=== PATIENT | female | born 1985 | race Hispanic/Latino ===

== ENCOUNTER 2017-09-10 01:37 | Emergency (ER) | payer BC ==
[2017-09-10] MEDS ORDERED: MORPHINE 4 MG/ML SYR ONE ×3 (02:03→07:39)
[2017-09-10] MEDS ORDERED: ONDANSETRON 4 MG/2 ML VIAL ONE ×3 (02:04→04:03)
[2017-09-10] MEDS ORDERED: NA CHLORIDE 0.9% 1,000 ML ONE ×2 (02:04→07:13)
[2017-09-10] MEDS ORDERED: FAMOTIDINE 20 MG/2 ML VIAL IV ONE (02:56)
[2017-09-10] MEDS ORDERED: CIPROFLOXACIN 400mg IV 400 MG/200 ML BAG IV ONE (03:00)
[2017-09-10 03:17] LABS: Absolute Monocytes 0.4 K/uL (0.1-1.3); Absolute Neutrophil 5.1 K/uL (1.8-8.0); Basophils % 0.9 % (0-1.3); Eosinophils % 1.1 % (0-4.4); Hematocrit 41.3 % (36.0-45.0); Lymphocytes % 26.2 % (15.3-44.8); MCH 30.3 pg (27.0-35.0); MCV 91.3 fL (80-100); MPV 8.1 fL (7.6-11.3); Monocytes % 5.4 % (3.3-12.3); RBC Red Blood Cell Count 4.53 M/uL (3.86-4.86)
[2017-09-10 03:18] LABS: Urine Bacteria <20 /HPF (<20); Urine Culture Reflex Order NOT NEEDED; Urine Mucus HEAVY /HPF (NONE SEEN); Urine RBC <5 /HPF (NONE SEEN)
[2017-09-10 03:21] LABS: Urine Blood NEGATIVE (NEG); Urine Glucose NEGATIVE (NEG); Urine Protein TRACE (NEG)
[2017-09-10 03:22] LABS: Bicarbonate 30 mEq/L (21-31); Glucose Level 103 mg/dL (65-120); Lipase 56 U/L (22-51); Potassium 3.9 mEq/L (3.6-5.0); Sodium Level 136 mEq/L (135-145)
[2017-09-10 03:28] LABS: ALT/SGPT 38 IU/L (10-60); AST/SGOT 30 IU/L (10-42); Albumin 4.2 g/dL (3.2-5.5); Amylase Level 132 U/L (28-100); BUN Blood Urea Nitrogen 19 mg/dL (6-20); Bilirubin Direct 0.1 mg/dL (0-0.2); Bilirubin Total 0.6 mg/dL (0.3-1.2); Protein, Total 7.2 g/dL (6.0-8.3)
[2017-09-10 03:43] LABS: Alkaline Phosphatase 62 IU/L (42-121)
[2017-09-10] MEDS ORDERED: METRONIDAZOLE 500mg IVPB 500 MG/100 ML BAG IV ONE (04:07)
[2017-09-10] MEDS ORDERED: PROMETHAZINE 25 MG/ML VIAL ONE (05:29)
--- NOTE | 2017-09-10 05:40 | EDPHYS ---
Physician Documentation [facility] Name: Steff Garcia Age: 31 yrs Sex: Female : 1985 Arrival Date: 09/10/2017 Time: 01:37 Bed 6 Private MD: Renato Maurer ED Physician Reza Walker HPI: 09/10 02:46 This 31 yrs old Female presents to ER via Ambulatory with complaints of maximino Abdominal Pain, Feel like it about to explode. 02:46 The patient presents with abdominal pain. Onset: The symptoms/episode began/occurred 2 maximino day(s) ago. The symptoms radiate to Associated signs and symptoms: Pertinent positives:. The symptoms are described as crampy, sharp. Severity of pain: At its worst the pain was mild moderate in the emergency department the pain is unchanged. The patient has not experienced similar symptoms in the past. 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 - Social history:: Smoking status: Patient/guardian denies using tobacco. - Family history:: not pertinent. ROS: 02:46 Constitutional: Negative for fever, chills, and weight loss, Eyes: Negative for injury, maximino pain, redness, and discharge, ENT: Negative for injury, pain, and discharge, Neck: Negative for injury, pain, and swelling, Cardiovascular: Negative for chest pain, palpitations, and edema, Respiratory: Negative for shortness of breath, cough, wheezing, and pleuritic chest pain, Back: Negative for injury and pain, : Negative for injury, bleeding, discharge, and swelling, MS/Extremity: Negative for injury and deformity, Skin: Negative for injury, rash, and discoloration, Neuro: Negative for headache, weakness, numbness, tingling, and seizure, Psych: Negative for depression, anxiety, suicide ideation, homicidal ideation, and hallucinations, Allergy/Immunology: Negative for hives, rash, and allergies, Endocrine: Negative for neck swelling, polydipsia, polyuria, polyphagia, and marked weight changes, Hematologic/Lymphatic: Negative for swollen nodes, abnormal bleeding, and unusual bruising. 02:46 Abdomen/GI: Positive for abdominal pain, nausea, vomiting, of the epigastric area, right upper quadrant and left upper quadrant. Exam: 02:46 Constitutional: This is a well developed, well nourished patient who is awake, alert, maximino and in no acute distress. Head/Face: Normocephalic, atraumatic. Eyes: Pupils equal round and reactive to light, extra-ocular motions intact. Lids and lashes normal. Conjunctiva and sclera are non-icteric and not injected. Cornea within normal limits. Periorbital areas with no swelling, redness, or edema. ENT: Nares patent. No nasal discharge, no septal abnormalities noted. Tympanic membranes are normal and external auditory canals are clear. Oropharynx with no redness, swelling, or masses, exudates, or evidence of obstruction, uvula midline. Mucous membranes moist. Neck: Trachea midline, no thyromegaly or masses palpated, and no cervical lymphadenopathy. Supple, full range of motion without nuchal rigidity, or vertebral point tenderness. No Meningismus. Chest/axilla: Normal chest wall appearance and motion. Nontender with no deformity. No lesions are appreciated. Cardiovascular: Regular rate and rhythm with a normal S1 and S2. No gallops, murmurs, or rubs. Normal PMI, no JVD. No pulse deficits. Respiratory: Lungs have equal breath sounds bilaterally, clear to auscultation and percussion. No rales, rhonchi or wheezes noted. No increased work of breathing, no retractions or nasal flaring. Abdomen/GI: Soft, non-tender, with normal bowel sounds. No distension or tympany. No guarding or rebound. No evidence of tenderness throughout. Back: No spinal tenderness. No costovertebral tenderness. Full range of motion. Female : Normal external genitalia. Skin: Warm, dry with normal turgor. Normal color with no rashes, no lesions, and no evidence of cellulitis. MS/ Extremity: Pulses equal, no cyanosis. Neurovascular intact. Full, normal range of motion. Neuro: Awake and alert, GCS 15, oriented to person, place, time, and situation. Cranial nerves II-XII grossly intact. Motor strength 5/5 in all extremities. Sensory grossly intact. Cerebellar exam normal. Normal gait. Psych: Awake, alert, with orientation to person, place and time. Behavior, mood, and affect are within normal limits. Vital Signs: 01:50 BP 142 / 117; Pulse 70; Resp 22; Temp 98.2; Pulse Ox 100% on R/A; Weight 65.32 kg; tl2 Height 5 ft. 2 in. (157.48 cm); Pain 10/10; 02:14 BP 130 / 82; Pulse 60; Resp 18; Pulse Ox 100% on R/A; tl2 02:53 BP 107 / 67; Pulse 64; Resp 18; Pulse Ox 100% on R/A; tl2 04:24 Pulse 57; Resp 18; Pulse Ox 97% on R/A; tl2 05:28 Pulse 50; Resp 18; Pulse Ox 100% on R/A; tl2 07:27 BP 120 / 75; Pulse 59; Pulse Ox 99% ; ae1 08:44 BP 106 / 74; Pulse 58; Resp 16; Pulse Ox 98% on R/A; ae1 01:50 Body Mass Index 26.34 (65.32 kg, 157.48 cm) tl2 MDM: 02:07 Patient medically screened. [facility] 02:48 Data reviewed: vital signs, nurses notes, lab test result(s), radiologic studies, CT maximino scan, plain films. 09/10 02:01 Order name: Amylase, Serum 2 09/10 02:01 Order name: Basic Metabolic Panel [facility] 09/10 02:01 Order name: CBC with Diff 2 09/10 02:01 Order name: Creatinine for Radiology [facility] 09/10 02:01 Order name: Hepatic Function; Complete Time: 04:25 2 09/10 02:01 Order name: Lipase; Complete Time: 04:25 2 09/10 02:01 Order name: Urine Microscopic Only; Complete Time: 04:25 [facility] 09/10 02:01 Order name: Amylase Level; Complete Time: 04:25 EDMS 09/10 02:01 Order name: Basic Metabolic Panel; Complete Time: 04:25 EDMS 09/10 02:01 Order name: CBC with Automated Diff; Complete Time: 04:25 EDMS 09/10 02:20 Order name: Urine Dipstick--Ancillary (enter results); Complete Time: 04:25 09/10 02:20 Order name: Urine --Ancillary (enter results); Complete Time: 04:25 09/10 02:45 Order name: CT Abd/Pelvis - W/Contrast [facility] 09/10 02:01 Order name: Urine Test (obtain specimen); Complete Time: 02:15 tl2 09/10 02:45 Order name: Chest Single View XRAY [facility] 09/10 02:01 Order name: IV Saline Lock; Complete Time: 02:15 tl2 09/10 02:01 Order name: Labs collected and sent; Complete Time: 02:15 tl2 09/10 02:01 Order name: Urine Dipstick-Ancillary (obtain specimen); Complete Time: 02:15 tl2 Administered Medications: 02:20 Drug: morphine 4 mg Route: IVP; Site: left antecubital; tl2 03:03 Follow up: Response: No adverse reaction tl2 02:20 Drug: Zofran 4 mg Route: IVP; Site: left antecubital; tl2 03:03 Follow up: Response: No adverse reaction; Nausea is decreased tl2 02:20 Drug: NS 0.9% 1000 ml Route: IV; Rate: 1 bolus; Site: left antecubital; tl2 02:48 Not Given (Duplicate Order): Zofran 4 mg IVP once; over 2 minutes [facility] 03:01 CANCELLED (Duplicate Order): NS 0.9% 1000 ml IV at 1 bolus Per protocol; 1000 mL bolus tl2 03:02 Drug: Pepcid 20 mg Route: IVP; Site: left antecubital; tl2 03:30 Follow up: Response: No adverse reaction tl2 03:02 Drug: morphine 4 mg Route: IVP; Site: left antecubital; tl2 03:30 Follow up: Response: No adverse reaction tl2 03:02 Drug: Cipro 400 mg Volume: 200 ml; Route: IVPB; Infused Over: 60 mins; Site: left tl2 antecubital; 04:06 Follow up: IV Status: Completed infusion tl2 03:02 Drug: Zofran 4 mg Route: IVP; Site: left antecubital; tl2 03:30 Follow up: Response: No adverse reaction; Nausea is decreased tl2 04:06 Drug: Zofran 4 mg Route: IVP; Infused Over: 2 mins; Site: left antecubital; tl2 04:30 Follow up: Response: No adverse reaction; Nausea is decreased tl2 04:10 Drug: Flagyl 500 mg Volume: 100 ml; Route: IVPB; Rate: 200 ml/hr; Infused Over: 30 tl2 mins; Site: left antecubital; 05:29 Follow up: IV Status: Completed infusion tl2 05:29 Drug: Phenergan 12.5 mg Route: IVP; Site: left antecubital; tl2 06:00 Follow up: Response: No adverse reaction; Nausea is decreased tl2 07:27 Drug: NS 0.9% 1000 ml Route: IV; Rate: 125 ml/hr; Site: left antecubital; ae1 09:01 Follow up: IV Status: Infusion continued upon transfer ae1 07:45 Drug: morphine 4 mg Route: IVP; Site: left antecubital; rv 09:01 Follow up: Response: Pain is decreased ae1 Disposition: 09/10/17 05:[address] [facility]. Diagnosis are Abdominal tenderness - gastric bypass, fistula, gastrogastric, Constipation. - Reason for transfer: Higher level of care. - Accepting [facility]. - Condition is Fair. - Problem is new. - Symptoms have improved. Signatures: Dispatcher [employer] [facility] Reza Walker MD MD cha Knox, Taylor, RN RN tl2 Gordon Warner RN RN ae1 Zoran Knapp RN RN rv Corrections: (The following items were deleted from the chart) 03:01 02:45 NS 0.9% 1000 ml IV at 1 bolus Per protocol; 1000 mL bolus ordered. [place] [id number] 03:15 02:01 Creatinine (Radiology Only) ordered. [facility] 08:59 05:39 09/10/2017 05:[address] [facility]. Diagnosis is ae1 Abdominal tenderness - gastric bypass, fistula, gastrogastric; Constipation. Reason for transfer: Higher level of care. Accepting physician is to [facility] and [facility]. Condition is Fair. Problem is new. Symptoms have improved. [facility]
--- NOTE | 2017-09-10 05:40 | ER ---
Nurse's Notes [facility] Name: Steff Garcia Age: 31 yrs Sex: Female : 1985 Arrival Date: 09/10/2017 Time: 01:37 Bed 6 Private MD: Renato Maurer Diagnosis: Abdominal tenderness-gastric bypass, fistula, gastrogastric;Constipation Presentation: 09/10 01:47 Presenting complaint: Patient states: Reports LUQ and LLQ pain that goes through to her tl2 back, stabbing pain. Pain started Tuesday, went to see her surgeon who did her gastric bypass sx in 03/2016. Given Protonix for suspected ulcers. Pt reports pain got worse tonight and "feels like stomach is going to explode". Transition of care: patient was not received from another setting of care. Onset of symptoms was September 06, 2017. Initial Sepsis Screen: Does the patient meet any 2 criteria? No. Patient's initial sepsis screen is negative. Does the patient have a suspected source of infection? No. Patient's initial sepsis screen is negative. Care prior to arrival: None. 01:47 Method Of Arrival: Ambulatory tl2 01:47 Acuity: KANCHAN 3 tl2 Triage Assessment: 01:50 General: Appears in no apparent distress. uncomfortable, Behavior is crying, restless. tl2 Pain: Complains of pain in left upper quadrant and left lower quadrant Pain radiates to back Pain currently is 10 out of 10 on a pain scale. Quality of pain is described as stabbing, Noted to be crying, guarding, moaning. Neuro: Level of Consciousness is awake, alert, obeys commands, Oriented to person, place, time, situation. Cardiovascular: Denies chest pain. Respiratory: Airway is patent Respiratory effort is even, unlabored, Respiratory pattern is regular, symmetrical. GI: Abdomen is non-distended, Reports lower abdominal pain, upper abdominal pain, Patient currently denies diarrhea, vomiting. : No signs and/or symptoms were reported regarding the genitourinary system. Derm: Skin is pink, warm \\T\\ dry. 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 - Social history:: Smoking status: Patient/guardian denies using tobacco. - Family history:: not pertinent. Screenin:52 Abuse screen: Denies threats or abuse. Nutritional screening: No deficits noted. tl2 Tuberculosis screening: No symptoms or risk factors identified. Fall Risk None identified. Assessment: 01:52 General: see triage assessment. tl2 02:53 Reassessment: Patient appears in no apparent distress at this time. Patient and/or tl2 family updated on plan of care and expected duration. Pain level reassessed. Patient is alert, oriented x 3, equal unlabored respirations, skin warm/dry/pink. Pt states pain has improved slightly. 03:41 Reassessment: Pt appears to be sleeping, RR even and unlabored. Awaiting CT scan. tl2 05:28 Reassessment: Patient appears in no apparent distress at this time. Patient and/or tl2 family updated on plan of care and expected duration. Pain level reassessed. Patient is alert, oriented x 3, equal unlabored respirations, skin warm/dry/pink. Pt c/o nausea, MD notified, new order see JUN. 07:41 Reassessment: Patient reports abdominal pain is returning, requesting pain medication. ae1 Notified Dr Griggs, new orders received. 07:50 Reassessment: Report called to receiving institution [facility] via telephone, rv spoke to receiving nurse JAZ Hauser. 08:42 Reassessment: Patient and/or family updated on plan of care and expected duration. Pain ae1 level reassessed. Patient appears to be sleeping, eyes closed, respirations even and unlabored. Sister at bedside. Patient states symptoms have improved. 08:58 GI: ae1 Vital Signs: 01:50 BP 142 / 117; Pulse 70; Resp 22; Temp 98.2; Pulse Ox 100% on R/A; Weight 65.32 kg; tl2 Height 5 ft. 2 in. (157.48 cm); Pain 10/10; 02:14 BP 130 / 82; Pulse 60; Resp 18; Pulse Ox 100% on R/A; tl2 02:53 BP 107 / 67; Pulse 64; Resp 18; Pulse Ox 100% on R/A; tl2 04:24 Pulse 57; Resp 18; Pulse Ox 97% on R/A; tl2 05:28 Pulse 50; Resp 18; Pulse Ox 100% on R/A; tl2 07:27 BP 120 / 75; Pulse 59; Pulse Ox 99% ; ae1 08:44 BP 106 / 74; Pulse 58; Resp 16; Pulse Ox 98% on R/A; ae1 01:50 Body Mass Index 26.34 (65.32 kg, 157.48 cm) tl2 ED Course: 01:37 Patient arrived in ED. es 01:39 Renato Maurer MD is Private Physician. es 01:49 Triage completed. tl2 01:50 Arm band placed on right wrist. tl2 01:52 Patient has correct armband on for positive identification. Placed in gown. Bed in low tl2 position. Call light in reach. Side rails up X 1. 02:00 Vicenta Gilman RN is Primary Nurse. tl2 02:00 Inserted saline lock: 20 gauge in left antecubital area, using aseptic technique. Blood tl2 collected. 02:07 Reza Walker MD is Attending Physician. maximino 03:36 X-ray completed. Portable x-ray completed in exam room. Patient tolerated procedure bb2 well. 03:39 Chest Single View XRAY In Process Unspecified. EDMS 04:[address] via wheelchair. nj 04:49 CT completed. Patient tolerated procedure well. nj 04:51 CT Abd/Pelvis - W/Contrast In Process Unspecified. EDMS 08:45 No provider procedures requiring assistance completed. Patient admitted, IV remains in ae1 place. Administered Medications: 02:20 Drug: morphine 4 mg Route: IVP; Site: left antecubital; tl2 03:03 Follow up: Response: No adverse reaction tl2 02:20 Drug: Zofran 4 mg Route: IVP; Site: left antecubital; tl2 03:03 Follow up: Response: No adverse reaction; Nausea is decreased tl2 02:20 Drug: NS 0.9% 1000 ml Route: IV; Rate: 1 bolus; Site: left antecubital; tl2 02:48 Not Given (Duplicate Order): Zofran 4 mg IVP once; over 2 minutes maximino 03:01 CANCELLED (Duplicate Order): NS 0.9% 1000 ml IV at 1 bolus Per protocol; 1000 mL bolus tl2 03:02 Drug: Pepcid 20 mg Route: IVP; Site: left antecubital; tl2 03:30 Follow up: Response: No adverse reaction tl2 03:02 Drug: morphine 4 mg Route: IVP; Site: left antecubital; tl2 03:30 Follow up: Response: No adverse reaction tl2 03:02 Drug: Cipro 400 mg Volume: 200 ml; Route: IVPB; Infused Over: 60 mins; Site: left tl2 antecubital; 04:06 Follow up: IV Status: Completed infusion tl2 03:02 Drug: Zofran 4 mg Route: IVP; Site: left antecubital; tl2 03:30 Follow up: Response: No adverse reaction; Nausea is decreased tl2 04:06 Drug: Zofran 4 mg Route: IVP; Infused Over: 2 mins; Site: left antecubital; tl2 04:30 Follow up: Response: No adverse reaction; Nausea is decreased tl2 04:10 Drug: Flagyl 500 mg Volume: 100 ml; Route: IVPB; Rate: 200 ml/hr; Infused Over: 30 tl2 mins; Site: left antecubital; 05:29 Follow up: IV Status: Completed infusion tl2 05:29 Drug: Phenergan 12.5 mg Route: IVP; Site: left antecubital; tl2 06:00 Follow up: Response: No adverse reaction; Nausea is decreased tl2 07:27 Drug: NS 0.9% 1000 ml Route: IV; Rate: 125 ml/hr; Site: left antecubital; ae1 09:01 Follow up: IV Status: Infusion continued upon transfer ae1 07:45 Drug: morphine 4 mg Route: IVP; Site: left antecubital; rv 09:01 Follow up: Response: Pain is decreased ae1 Outcome: 05:39 ER care complete, transfer ordered by MD. [place] 08:58 Transferred by ground EMS to [facility]. ae1 08:58 Condition: stable 08:58 Instructed on the need for transfer, Demonstrated understanding of instructions. 08:59 Patient left the ED. ae1 Signatures: Dispatcher [employer] Reza Harmon MD MD cha Salyer, Edna es Knox, Vicenta, RN RN tl2 Gordon Warner RN RN ae1 Marc Vences Brittany bb2 Zoran Knapp RN RN rv
--- NOTE | 2017-09-10 09:18 | RAD REPORT ---
EXAM DESCRIPTION: RAD - Chest Single View - 09/10/2017 3:39 am CLINICAL HISTORY: Abdominal pain extending to the back COMPARISON: June 2014 TECHNIQUE: AP portable chest image was obtained 0329 hours . FINDINGS: Lungs are clear. Heart and vasculature are normal. No measurable pleural effusion and no p neumothorax. No gross bony abnormality seen. No acute aortic findings suspected. IMPRESSION: No acute cardiopulmonary process. No significant interval change.
--- NOTE | 2017-09-10 10:19 | RAD REPORT ---
EXAM DESCRIPTION: CT - Abdomen Pelvis W Contrast - 09/10/2017 6:40 am CLINICAL HISTORY: Left upper quadrant pain, left lower quadrant pain A preliminary written report was provided at the time of the study, and the report was reviewed prio r to final dictation. COMPARISON: None. TECHNIQUE: Biphasic, helical CT imaging of the abdomen and pelvis was performed following 100 ml non -ionic IV contrast. Oral contrast was given. All CT scans are performed using dose optimization technique as appropriate and may include automated exposure control or mA/KV adjustment according to patient size. FINDINGS: No suspicious findings in the lung bases. No focal lung parenchymal process no splenic abnormality. Pancreas and peripancreatic tissues without an acute focal finding. Gallbladder is well filled but not dilated. Gallstones can be occult. No rosa iary tree dilatation. Patient has a prominent periportal edema pattern. This is nonspecific and can be seen with hepatitis or other diffuse hepatic parenchymal disease. This can also be secondary to a systemic illness not ot herwise evident on this examination. Patient does have a mild congested or edematous appearance to th e peritoneal and subcutaneous fatty tissues. Symmetric renal function is seen with no hydronephrosis or suspicious renal mass. No pyelonephritis o r acute renal parenchymal process. No urinary bladder focal abnormality. Uterus and ovaries within no rmal limits. Gastric bypass surgical changes are noted. Oral contrast is present in both the paddle Peng bypassed portion of the stomach. This could indicate incomplete closure along the bypass or development of a f istula. Retrograde flow from small bowel would be possible. No free air or pneumatosis. No suspicious finding at the distal small bowel anastomosis. Stomach, small bowel and colon are not dilated. There is a large amount of stool throughout the colon. No free air, free fluid or inflammatory stranding. No mass or bulky lymphadenopathy. No suspicious bony findings. IMPRESSION: No bowel obstruction, free air or surgically emergent finding. Contrast is present in both the pouch and bypass portion of the stomach. This could indicate an incom plete closure along the bypass, fistula or possible retrograde movement from small bowel. Large stool volume throughout the colon. No active colon process. Periportal edema pattern. This is nonspecific and the finding can occur with hepatitis or diffuse hep atic parenchymal disease as well as a nonspecific systemic process.
== END 2017-09-10 08:59 | disposition short-term general hospital (02) ==
LOC: ER 01:37
DX: K31.6 Fistula of stomach and duodenum (principal); K59.00 Constipation, unspecified; F90.9 Attention-deficit hyperactivity disorder, unspecified type; Z88.5 Allergy status to narcotic agent
CPT/HCPCS: 36415; 71045; 74177; 80048; 80076; 81003; 81015; 81025; 82150; 83690; 85025; 96361; 96365; 96367; 96375; 99285; J0744; J2405; J2550; J7030; Q9967

== ENCOUNTER → 2019-11-14 | Day surgery (SDC) | payer BC ==
[~2019-11-14] MED LIST: DIPHENHYDRAMINE 50 MG/ML VIAL ONE; NA CHLORIDE 0.9% 500 ML ONE; ONDANSETRON 4 MG/2 ML VIAL ONE; SOD FERRIC GLUC COMPLX/SUCROSE 250 MG in NA CHLORIDE 0.9% 250 ML IV ONE; TRIAMCINOLONE ACETON 40 MG/ML VIAL IM ONE
[2019-11-14 09:23] VITALS: BMI 27.4
--- OUTSIDE RECORDS SUMMARY | 2019-11-14 09:35 | XMS REPORT | Clinical Summary ---
:1985 Author Organization [facility] Address [address] [place] [address] Care Team Providers Name Role Phone Ryan Maurer Primary Care Provider Allergies Active Allergy Reactions Severity Noted Date Comments Hydrocodone-Acetaminophen Nausea And Vomiting 09/11/19 18 Medications Medication Sig Dispensed Refills Start Date End Date Status lisdexamfetamine Take 70 mg by 0 Active (VYVANSE) 70 MG capsule mouth every morning. cholecalciferol (VITAMIN Take 1,000 0 Active D3) 1,000 unit tablet Units by mouth every other day. ferrous gluconate 236 mg Take 1 tablet 0 Active (27 mg iron) Tab by mouth daily. ascorbic acid, vitamin C, Take 500 mg by 0 Active (ASCORBIC ACID WITH JUDY mouth 3 (three) HIPS) 500 MG tablet times daily. multivitamin capsule Take 1 capsule 0 Active by mouth daily. sucralfate (CARAFATE) 100 Take 1 g by 0 Active mg/mL suspension mouth 4 (four) times daily 10 ml . pantoprazole (PROTONIX) Take 40 mg by 0 Active 40 MG tablet mouth 2 (two) times daily. Active Problems Not on file Family History Medical History Relation Name Comments Hyperlipidemia Father Hypertension Mother Relation Name Status Comments Father Mother Social History Tobacco Use Types Packs/Day Years Used Date Never Smoker Smokeless Tobacco: Never Used Alcohol Use Drinks/Week oz/Week Comments No Sex Assigned at Date Recorded Not on file Job Start Date Occupation Industry Not on file Not on file Not on file Travel History Travel Start Travel End No recent travel history available. Last Filed Vital Signs Not on file Plan of Treatment Not on file Results Not on fileafter 11/13/2018 Insurance Payer Benefit Plan / Subscriber ID Type Phone Address Group BLUE TAD/[employer]UE [employer]BS OS xxxxxxxxxxxx PPO [phone] [address] X [id number] SHIELD [place]/PP[place] [address]
--- OUTSIDE RECORDS SUMMARY | 2019-11-14 09:38 | XMS REPORT | Summary of Care ---
:1985 Author Organization [facility] Address [id number] [place] [id number] Encounter HQ Encntr_alias(FIN) [id number] Date(s): 09/20/19 - 09/20/19 [facility] [address] [place] [phone]- [phone] Attending Physician: Ryan Chan MD Vital Signs No data available for this section Problem List Condition Effective Dates Status Health Status Informant Morbid obesity(Confirmed) Active Allergies, Adverse Reactions, Alerts Substance Reaction Severity Status codeine Active Medications No data available for this section Results No data available for this section Immunizations No data available for this section Procedures Procedure Date Related Diagnosis Body Site Status Gastric bypass 04/15/16 Completed Bilateral tubal ligation Com pleted section Completed Tonsillectomy with adenoidectomy Completed Social History Social History Type Response Alcohol Never, Previous treatment: N one. Alcohol use interferes with work or home: No. Drinks mo re than intended: No. Ready to change: No. Household alcoh ol concerns: No. Substance Abuse Use: None. Smoking Status Never smoker; Type: Cigarett es; Exposure to Tobacco Smoke None; Cigarette Smoking Last 365 Days No; Reg Smoking Cessation Counseling No; Stopped at age: 17; entered on: 03/19/19 Assessment and Plan No data available for this section
--- OUTSIDE RECORDS SUMMARY | 2019-11-14 09:38 | XMS REPORT | Continuity of Care Document ---
:1985 Author Organization [facility] [employer] Information AURSOS Care Team Providers Name Role Phone [employer] Unavailable Un available Problems Problem Status Onset Classification Date Comments Sourc e Date Reported ABDOMINAL PAIN Active Me morial 8 City Discharge 05/07/2016 Memori al Diagnosis: [address] [facility] Benign paroxysmal vertigo DIZZINESS Active Memoria l [address] [facility] [id number], MORBID Active [facility] orial OBESITY [address] [facility] Morbid obesity Active Problem 09/22/2019 M edical (disorder) Group,[facility] ILLNESS, Active Memoria l UNSPECIFIED [facility] Medications Medication Details Route Status Patient Ordering Order Source Instructions Provider Date Tramadol Notes: Not to Inactive exceed 2017 [facility] 400mg/day. [facility] (Same As: Ultra) tramadol 50 mg = 1 tab, Active hydrochloride 50 PO, Q4H, PRN 2017 [place] [facility] MG Oral Tablet Pain, X 5 day, Ci ty # 30 tab, 0 Refill(s) Dulcolax Laxative Notes: (Same No Longer As: Dulcolax, Active 2017 [facility] Correctol) (Do City Not Crush) "Do Not Crush" neostigmine (ANES) Route: IV, Drug Inactive 08/24 0 form: INJ, 2017 [facility] , date: 09/10/17 19:27:00 CDT glycopyrrolate Route: IV, Drug Inactive (ANES) form: INJ, 2017 [facility] ONCE, date: 09/10/17 19:27:00 CDT rocuronium (ANES) Route: IV, Drug Inactive 09/10 form: INJ, 2017 [facility] , Stop date: 09/10/17 18:37:00 CDT dexamethasone Route: IV, Drug Inactive H (ANES) form: INJ2017 [facility] , date: 09/10/17 18:37:00 CDT fentaNYL (ANES) Route: IV, Drug Inactive form: INJ, 2017 [facility] ONCE, Stop City date: 09/10/17 18:37:00 CDT lidocaine (ANES) Route: IV, Drug Inactive form: INJ, 2017 [facility] ONCE, Stop City date: 09/10/17 18:37:00 CDT propofol (ANES) Route: IV, Drug Inactive form: INJ, 2017 [facility] , Stop City date: 09/10/17 18:37:00 CDT ceFAZolin (ANES) Route: IV, Drug Inactive form: INJ, 2017 [facility] , Stop City date: 09/10/17 18:32:00 CDT Ancef 2 gm, Route: Inactive IVPB, ONCE, 2017 [facility] Weight 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 Only; For patients < 100 kg, ABX Indication: Surgical Prophylaxis Lactated Ringers Route: IV, Inactive Injection IV Total Volume: 2017 [facility] (ANES) 1000 mL 1,000, Start City date: 09/10/17 17:42:00 CDT, Stop date: 09/10/17 18:42:00 CDT Flumazenil Notes: (Same Inactive as: Romazicon) [address] [place] [address] Naloxone Notes: Same as Inactive Narcan 2017 [facility] Hydromorphone Notes: Same as Inactive Dilaudid 2017 [facility] Ondansetron Notes: (Same Inactive as: Zofran) [address] [place] [address] MEDICATION City WASTE Product Size: 4 mg Product Wasted: ___ mg biotin 10,000 mcg, PO, Active Daily, 0 [facility] Protonix 40 mg, PO, BID, No Longer # 30 tab, 0 Active 2017 [facility] Refill(s) [facility] ferrous gluconate 240 mg = 1 tab, Active 240 mg oral tablet PO, Daily, 0 [facility] Vitamin C 500 mg 500 mg = 1 tab, Active oral tablet PO, TID, 0 2017 [facility] Refill(s) [facility] Vitamin D3 10,000 10,000 IntlUnit Active intl units oral = 1 cap, PO, 2018 Mem orial capsule Every Other City Day, 0 Refill(s) multivitamin 1 tab, PO, Active Daily, 0 2017 [facility] Refill(s) [facility] Sucralfate 100 1 gm = 10 ml, No Longer H MG/ML Oral PO, QID-Before Active 2017 Memori al Suspension Meals, # 400 City [Carafate] ml, 0 Refill(s) Phenergan 12.5 mg, 50 mL, No Longer Route: IV Active 2017 [facility] [place] City form: SOLN, Q4H, Dosing Weight 65.455, kg, PRN Nausea & Vomiting, Start date: 09/10/17 14:25:00 CDT, Duration: 30 day, Stop date: 10/10/17 14:24:00 CDT Dilaudid Notes: Same as No Longer Dilaudid Active 2017 [facility] Lactated Ringers 1,000 mL, Rate: Inactive IV 1,000 mL 125 ml/hr, 2017 [facility] Infuse over: 8 City hr, Route: IV, Dosing Weight 65.455 kg, Total Volume: 1,000, Start date: 09/10/17 14:25:00 CDT, Duration: 30 day, Stop date: 10/10/17 14:24:00 CDT, 1.71, m2 Calcium Chloride 2,000 mL, 2,000 Inactive 0.0014 MEQ/ML / ml/hr, Infuse 2018 [facility] Potassium Chloride Over: 1 hr, C ity 0.004 MEQ/ML / Route: IV, Sodium Chloride 2,000, Drug 0.103 MEQ/ML / form: INJ, Sodium Lactate ONCE, Priority: 0.028 MEQ/ML STAT, Dosing Injectable Weight 65.455 Solution kg, Start date: 09/10/17 14:25:00 CDT, Stop date: 09/10/17 14:25:00 CDT Sodium Chloride 25 mL, Route: No Longer 0.9% IV IV, Start date: Active 2017 [facility] 09/10/[address] [facility] 14:24:00 CDT, Duration: 30 day, Stop date: 10/10/17 14:23:00 CDT, PRN Line Flush BD Normal Saline Notes: (Same No Longer Flush as: BD Active 2017 [facility] Posiflush) [facility] IV 1,000 mL 1,000 mL, Rate: No Longer 125 ml/hr, Active 2017 [facility] Infuse over: 8 City hr, Route: IV, Dosing Weight 110 kg, Total Volume: 1,000, Start date: 09/10/17 14:08:00 CDT, Duration: 30 day, Stop date: 10/10/17 14:07:00 CDT, 2.24, m2 Zofran ODT Notes: (Same No Longer as: Zofran ODT) Active 2017 [facility] Dilaudid Notes: Same as Inactive Dilaudid 2017 [facility] Phenergan 12.5 mg, 50 mL, No Longer Route: IVPB, Active 2017 [facility] Drug form: City SOLN, Q4H, Dosing Weight 65.455, kg, PRN Nausea & Vomiting, Start date: 09/10/17 14:08:00 CDT, Duration: 30 day, Stop date: 10/10/17 14:07:00 CDT Calcium Chloride 1,000 mL, 1,000 Inactive 0.0014 MEQ/ML / ml/hr, Infuse 2017 [facility] Potassium Chloride Over: 1 hr, C ity 0.004 MEQ/ML / Route: IV, Sodium Chloride 1,000, Drug 0.103 MEQ/ML / form: INJ, Sodium Lactate ONCE, Priority: 0.028 MEQ/ML STAT, Dosing Injectable Weight 65.455 Solution kg, Start date: 09/10/17 14:08:00 CDT, Stop date: 09/10/17 14:08:00 CDT meclizine 25 mg 25 mg = 1 tab, Active H oral tablet, CHEW, TID, PRN 2017 [place] [place] chewable Dizziness, X 10 City day, # 30 tab, 0 Refill(s) Valium 5 mg, Route: Inactive IVP, Drug form: 2016 [facility] INJ, ONCE, [facility] Dosing Weight 110, kg, Priority: STAT, Start date: 05/04/16 14:40:00 SALES OFFICE ADMINISTRATOR, Stop date: 05/04/16 14:40:00 SALES OFFICE ADMINISTRATOR Meclizine 25 mg, Route: Inactive PO, Drug form: 2016 [facility] TAB, ONCE, [facility] Dosing Weight 110, kg, Priority: STAT, Start date: 05/04/16 14:40:00 SALES OFFICE ADMINISTRATOR, Stop date: 05/04/16 14:40:00 SALES OFFICE ADMINISTRATOR Acetaminophen Notes: Max No Longer acetaminophen = Active 2015 [facility] 4000mg/day (4 City gm/day). (Same as: Tylenol) Simethicone Notes: (Same No Longer as: Mylicon) Active 2015 [facility] tramadol 50 mg = 1 tab, Active hydrochloride 50 PO, Q4H, PRN 2015 [facility]ial MG Oral Tablet Pain Score 1-3, C ity X 7 day, # 42 tab, 0 Refill(s) tramadol Notes: Not to No Longer hydrochloride 50 exceed Active 2015 Memoria l MG Oral Tablet 400mg/day. City (Same As: Ultra) Enoxaparin Notes: (Same No Longer as: Lovenox) Active 2015 [facility] Notes: Infuse No Longer over 15 minutes Active 2015 [facility] Do not exceed [facility] 4gm/day of acetaminophen MEDICATION WASTE Product Size: 1000 mg Product Wasted: ___ mg Hydromorphone Notes: Same as Inactive Dilaudid 2015 [facility] Notes: Infuse Inactive over 15 minutes 2015 [facility] Do not exceed [facility] 4gm/day of acetaminophen MEDICATION WASTE Product Size: 1000 mg Product Wasted: ___ mg Ketorolac 4 days No Longer MEDICATION Active 2015 [facility] WASTE City Product Size: 30 mg Product Wasted: ___ mg Dilaudid Notes: Same as No Longer Dilaudid Active 2015 [facility] Lactated Ringers 1,000 mL, Rate: No Longer 04/15 1,000 mL 80 ml/hr, Active 2015 [facility] Infuse over: [facility] 12.5 hr, Route: IV, Dosing Weight 119.091 kg, Total Volume: 1,000, Priority: STAT, Start date: 04/15/16 10:11:00 SALES OFFICE ADMINISTRATOR, Duration: 30 day, Stop date: 05/15/16 10:10:00 SALES OFFICE ADMINISTRATOR Calcium Chloride 1,000 mL, Rate: No Longer 04/15 0.0014 MEQ/ML / 125 ml/hr, Active 2015 [facility] ial Potassium Chloride Infuse over: [facility] 0.004 MEQ/ML / hr, Route: IV, Sodium Chloride Dosing Weight 0.103 MEQ/ML / 119.091 kg, Sodium Lactate Total Volume: 0.028 MEQ/ML 1,000, Start Injectable date: 04/15/16 Solution 10:11:00 SALES OFFICE ADMINISTRATOR, Duration: 30 day, Stop date: 05/15/16 10:10:00 SALES OFFICE ADMINISTRATOR Promethazine 12.5 mg, 50 mL, No Longer 04/15/ H Route: IVPB, Active 2015 [facility] Drug form: City SOLN, Q4H, Dosing Weight 119.091, kg, PRN Nausea & Vomiting, Start date: 04/15/16 10:11:00 SALES OFFICE ADMINISTRATOR, Duration: 30 day, Stop date: 05/15/16 10:10:00 SALES OFFICE ADMINISTRATOR Ondansetron Notes: (Same No Longer as: Zofran) Active 2015 [facility] MEDICATION City WASTE Product Size: 4 mg Product Wasted: ___ mg ondansetron (ANES) Route: IV, Drug Inactive 03/26 form: INJ, 2015 [facility] date: 04/15/16 9:40:00 SALES OFFICE ADMINISTRATOR glycopyrrolate Route: IV, Drug Inactive (ANES) form: INJ, 2015 [facility] , Stop [facility] date: 04/15/16 9:40:00 SALES OFFICE ADMINISTRATOR ketOROLAC (ANES) IV, ONCE Inactive 2015 [facility] neostigmine (ANES) Route: IV, Drug Inactive 03/26 form: INJ, 2015 [facility] , [facility] date: 04/15/16 9:40:00 SALES OFFICE ADMINISTRATOR ceFAZolin (ANES) Route: IV, Drug Inactive form: INJ, 2015 date: 04/15/16 8:56:00 SALES OFFICE ADMINISTRATOR acetaminophen Route: IV, Drug Inactive 04/15/ M H (ANES) form: INJ, 2015 date: 04/15/16 8:51:00 SALES OFFICE ADMINISTRATOR dexamethasone Route: IV, Drug Inactive 04/15/ M H (ANES) form: INJ, 2015 date: 04/15/16 8:46:00 SALES OFFICE ADMINISTRATOR succinylcholine Route: IV, Drug Inactive MH (ANES) form: INJ, 2015 date: 04/15/16 8:46:00 SALES OFFICE ADMINISTRATOR fentaNYL (ANES) Route: IV, Drug Inactive form: INJ, 2015 [facility] date: 04/15/16 8:46:00 SALES OFFICE ADMINISTRATOR midazolam (ANES) Route: IV, Drug Inactive form: SOLN, 2015 date: 04/15/16 8:46:00 SALES OFFICE ADMINISTRATOR propofol (ANES) Route: IV, Drug Inactive form: INJ, 2015 [facility] date: 04/15/16 8:46:00 SALES OFFICE ADMINISTRATOR lidocaine (ANES) Route: IV, Drug Inactive form: INJ, 2015 [facility] date: 04/15/16 8:46:00 SALES OFFICE ADMINISTRATOR rocuronium (ANES) Route: IV, Drug Inactive 04/15 form: INJ, 2015 [facility] date: 04/15/16 8:36:00 SALES OFFICE ADMINISTRATOR LR 1000 mL INJ Route: IV, Inactive (ANES) Total Volume: 2015 [facility] 1,000, date: 04/15/16 7:48:00 SALES OFFICE ADMINISTRATOR, Stop date: 04/15/16 8:48:00 SALES OFFICE ADMINISTRATOR Naloxone Notes: Same as No Longer Narcan Active 2015 [facility] Flumazenil Notes: (Same No Longer as: Romazicon) Active 2015 [facility] Ondansetron Notes: (Same No Longer as: Zofran) Active 2015 [facility] MEDICATION City WASTE Product Size: 4 mg Product Wasted: ___ mg Hydromorphone Notes: Same as Inactive Dilaudid 2015 [facility] ceFAZolin Notes: Same as: Inactive Ancef 2016 [facility] lisdexamfetamine 70 mg = 1 cap, Active dimesylate 70 MG PO, QAM, # 30 [facility] Caps[facility] cap, 0 City [Vyvanse] Refill(s) Allergies, Adverse Reactions, Alerts Substance Category Reaction Severity Reaction Status Date Comments S ource type Reported codeine Assertion Drug Active allergy Medical Group Immunizations No Data Provided for This Section Results Order Name Results Value Reference Date Interpretation Comments Nighat rce Range CHEM PANEL eGFR 100 09/11 Result Comment: [facility] eGFR is City calculated using the CKD-EPI formula. In most young, healthy individuals the eGFR will be >90 mL/min/1.73m2 . The eGFR declines with age. An eGFR of 60-89 may be normal in some populations, particularly the elderly, for whom the CKD-EPI formula has not been extensively validated. Use of the eGFR is not recommended in the following populations:< br/>
Naomy viduals with unstable creatinine concentration s, including patients and those with serious co-morbid conditions.<b r/>
Patie nts with extremes in muscle mass or diet.

The data above are obtained from the National Kidney Disease Education Program (NKDEP) which additionally recommends that when the eGFR is used in patients with extremes of body mass index for purposes of drug dosing, the eGFR should be multiplied by the estimated BMI. CHEM PANEL Creatinine 0.78 0.50 - 09/11 MH Lvl 1.40 /2017 [facility] CHEM PANEL Potassium 4.2 3.5 - 5.1 09/11 MH Lvl /2017 [facility] CHEM PANEL BUN 9 7 - 22 09/11 [facility] CHEM PANEL Sodium Lvl 136 135 - 145 09/11 [facility] CHEM PANEL Glucose Lvl 149 70 - 99 09/11 [facility] CHEM PANEL Chloride Lvl 98 95 - 109 09/11 [facility] CHEM PANEL CO2 28 24 - 32 09/11 [facility] CHEM PANEL Calcium Lvl 8.2 8.5 - 10.5 09/11 [facility] CHEM PANEL AGAP 14.2 10.0 - 09/11 MH 20.0 [facility] HEMATOLOGY RDW 13.1 11.5 - 09/11 MH 14.5 [facility] HEMATOLOGY MPV 8.0 7.4 - 10.4 09/11 [facility] HEMATOLOGY Platelet 236 133 - 450 09/11 [facility] HEMATOLOGY Hct 35.5 36.0 - 09/11 MH 48.0 /2017 [facility] HEMATOLOGY MCV 90.9 80.0 - 09/11 MH 98.0 /2017 [facility] HEMATOLOGY MCH 31.5 27.0 - 09/11 MH 31.0 [facility] HEMATOLOGY MCHC 34.6 32.0 - 09/11 MH 36.0 /2017 [facility] HEMATOLOGY WBC 10.1 3.7 - 10.4 09/11 [facility] HEMATOLOGY Hgb 12.3 12.0 - 09/11 MH 16.0 [facility] HEMATOLOGY RBC 3.91 4.20 - 09/11 MH 5.40 [facility] CHEM PANEL eGFR 116 09/10 Result Comment: [facility] eGFR is City calculated using the CKD-EPI formula. In most young, healthy individuals the eGFR will be >90 mL/min/1.73m2 . The eGFR declines with age. An eGFR of 60-89 may be normal in some populations, particularly the elderly, for whom the CKD-EPI formula has not been extensively validated. Use of the eGFR is not recommended in the following populations:< br/>
Naomy viduals with unstable creatinine concentration s, including patients and those with serious co-morbid conditions.<b r/>
Patie nts with extremes in muscle mass or diet.

The data above are obtained from the National Kidney Disease Education Program (NKDEP) which additionally recommends that when the eGFR is used in patients with extremes of body mass index for purposes of drug dosing, the eGFR should be multiplied by the estimated BMI. CHEM PANEL AGAP 11.6 10.0 - 09/10 MH 20. [facility] CHEM PANEL BUN 11 7 - 22 09/10 [facility] CHEM PANEL Glucose Lvl 86 70 - 99 09/10 [facility] CHEM PANEL Creatinine 0.68 0.50 - 09/10 Lvl 1.40 /2017 [facility] CHEM PANEL CO2 30 24 - 32 09/10 [facility] CHEM PANEL Potassium 4.6 3.5 - 5.1 09/10 MH Lvl /2017 [facility] CHEM PANEL Chloride Lvl 104 95 - 109 09/10 [facility] CHEM PANEL Calcium Lvl 8.7 8.5 - 10.5 09/10 [facility] CHEM PANEL Sodium Lvl 141 135 - 145 09/10 [facility] CHEM PANEL AST 22 0 - 37 09/10 [facility] CHEM PANEL Bili Direct <0.1 0.0 - 0.3 09/10 [facility] CHEM PANEL ALT 40 0 - 65 09/10 [facility] CHEM PANEL Albumin Lvl 3.2 3.5 - 5.0 09/10 [facility] CHEM PANEL Bili Unable to 0.0 - 1.0 09/10 Indirect [facility] CHEM PANEL Bili Total 0.4 0.2 - 1.3 09/10 [facility] CHEM PANEL Alk Phos 62 39 - 136 09/10 [facility] CHEM PANEL A/G Ratio 1.1 0.7 - 1.6 09/10 [facility] CHEM PANEL Globulin 2.9 2.7 - 4.2 09/10 [facility] CHEM PANEL Total 6.1 6.4 - 8.4 09/10 [facility] HEMATOLOGY MPV 7.5 7.4 - 10.4 09/10 [facility] HEMATOLOGY Platelet 253 133 - 450 09/10 [facility] HEMATOLOGY RDW 13.1 11.5 - 09/10 MH 14.5 [facility] HEMATOLOGY Hgb 12.3 12.0 - 09/10 MH 16.0 [facility] HEMATOLOGY WBC 6.3 3.7 - 10.4 09/10 [facility] HEMATOLOGY RBC 3.99 4.20 - 09/10 MH 5.40 /2017 [facility] HEMATOLOGY MCHC 34.0 32.0 - 09/10 MH 36.0 [facility] HEMATOLOGY MCV 90.8 80.0 - 09/10 MH 98.0 [facility] HEMATOLOGY MCH 30.9 27.0 - 09/10 MH 31.0 [facility] HEMATOLOGY Hct 36.2 36.0 - 09/10 MH 48.0 [facility] URINE AND UA <=1.0 0.1 - 1.0 05/04 STOOL Urobilinogen mg/dL /2016 [facility] URINE AND UA Protein Negative Negative 05/04 STOOL mg/dL mg/dL [facility] URINE AND UA pH 7.0 5.0 - 8.0 05/04 STOOL [facility] URINE AND UA Spec Grav 1.020 <=1.030 05/04 STOOL [facility] URINE AND UA Color Yellow Yellow 05/04 STOOL *NA* /2016 [facility] (05/04/16 2:38 PM) [facility] URINE AND UA Turbidity Slight Clear 05/04 STOOL *ABN* /2016 [facility] (05/04/16 2:38 PM) [facility] URINE AND UA Mucus Few /LPF None Seen 05/04 STOOL /LPF /2016 [facility] URINE AND UA RBC 18 0 - 2 05/04 STOOL [facility] URINE AND UA Bacteria Occasional None Seen 05/04 STOOL /HPF /HPF /2016 [facility] URINE AND UA Leuk Est Negative Negative 05/04 STOOL (05/04/16 2:38 PM) /2016 [facility] URINE AND UA Sq Epi Few /LPF Few /LPF 05/04 STOOL /2016 [facility] URINE AND UA Nitrite Negative Negative 05/04 STOOL (05/04/16 2:38 PM) /2016 [facility] URINE AND UA Bili Negative Negative 05/04 STOOL *NA* /2016 [facility] (05/04/16 2:38 PM) [facility] URINE AND UA Blood Negative Negative 05/04 STOOL (05/04/16 2:38 PM) /2016 [facility] URINE AND UA Ketones 20 mg/dL Negative 05/04 STOOL mg/dL /2016 [facility] URINE AND UA Glucose Negative Negative 05/04 STOOL mg/dL mg/dL /2016 [facility] URINE CHEM U Preg Negative Negative 05/04 (05/04/16 2:38 PM) /2016 [facility] ANEMIA Vitamin B12 937 254 - 1320 05/04 STUDY Lvl /2016 [facility] CHEM PANEL Lipase Lvl 129 73 - 393 05/04 [facility] CHEM PANEL Magnesium 1.7 1.8 - 2.4 05/04 Lvl /2016 [facility] CHEM PANEL Phosphorus 3.9 2.5 - 4.5 05/04 [facility] CHEM PANEL Bili 0.3 0.0 - 1.0 05/04 [facility] CHEM PANEL A/G Ratio 1.0 0.7 - 1.6 05/04 [facility] CHEM PANEL Globulin 3.4 2.7 - 4.2 05/04 [facility] CHEM PANEL AST 17 0 - 37 05/04 [facility] CHEM PANEL Total 6.8 6.4 - 8.4 05/04 [facility] CHEM PANEL Bili Total 0.4 0.2 - 1.3 05/04 [facility] CHEM PANEL Alk Phos 56 39 - 136 05/04 [facility] CHEM PANEL Bili Direct 0.1 0.0 - 0.3 05/04 [facility] CHEM PANEL ALT 27 0 - 65 05/04 [facility] CHEM PANEL Albumin Lvl 3.4 3.5 - 5.0 05/04 [facility] CHEM PANEL VITAMIN B1 136.8 66.5 - 01 Result MH (THIAMINE) 200.0 /2016 Comment: [facility] WHOLE BLOOD Performed At: [facility]
[address] [place], [place] [id number]<br/ >Emily Cordero MD Ph:[phone] ELECTROLYTE AGAP 13.3 10.0 - 05/04 MH S 20.0 [facility] ELECTROLYTE eGFR 126 05/04 Result Comment: [facility] eGFR is City calculated using the CKD-EPI formula. In most young, healthy individuals the eGFR will be >90 mL/min/1.73m2 . The eGFR declines with age. An eGFR of 60-89 may be normal in some populations, particularly the elderly, for whom the CKD-EPI formula has not been extensively validated. Use of the eGFR is not recommended in the following populations:< br/>
Naomy viduals with unstable creatinine concentration s, including patients and those with serious co-morbid conditions.<b r/>
Patie nts with extremes in muscle mass or diet.

The data above are obtained from the National Kidney Disease Education Program (NKDEP) which additionally recommends that when the eGFR is used in patients with extremes of body mass index for purposes of drug dosing, the eGFR should be multiplied by the estimated BMI. ELECTROLYTE CO2 25 24 - 32 05/04 MH [facility] ELECTROLYTE Creatinine 0.54 0.50 - 05/04 S Lvl 1.40 /2016 [facility] ELECTROLYTE BUN 8 7 - 22 05/04 S [facility] ELECTROLYTE Glucose Lvl 99 70 - 99 05/04 [facility] ELECTROLYTE Calcium Lvl 8.9 8.5 - 10.5 05/04 [facility] ELECTROLYTE Potassium 4.3 3.5 - 5.1 05/04 S Lvl /2016 [facility] ELECTROLYTE Chloride Lvl 108 95 - 109 05/04 S [facility] ELECTROLYTE Sodium Lvl 142 135 - 145 05/04 S [facility] HEMATOLOGY Platelet 287 133 - 450 05/04 [facility] HEMATOLOGY MCV 83.4 80.0 - 05/04 98.0 /2016 [facility] HEMATOLOGY MCH 28.6 27.0 - 05/04 31.0 [facility] HEMATOLOGY MCHC 34.4 32.0 - 05/04 36.0 /2016 [facility] HEMATOLOGY RDW 13.4 11.5 - 05/04 14.5 [facility] HEMATOLOGY WBC 6.2 3.7 - 10.4 05/04 [facility] HEMATOLOGY Hct 38.5 36.0 - 05/04 48.0 /2016 [facility] HEMATOLOGY RBC 4.62 4.20 - 05/04 5.40 [facility] HEMATOLOGY Hgb 13.2 12.0 - 05/04 16.0 [facility] HEMATOLOGY MPV 8.2 7.4 - 10.4 05/04 [facility] HEMATOLOGY Lymphocytes 33.9 20.0 - 05/04 40.0 [facility] HEMATOLOGY Monocytes 5.5 2.0 - 12.0 05/04 [facility] HEMATOLOGY Segs-Bands # 3.5 1.5 - 8.1 05/04 [facility] HEMATOLOGY Basophils 0.9 0.0 - 1.0 05/04 [facility] HEMATOLOGY Basophils # 0.1 0.0 - 0.2 05/04 [facility] HEMATOLOGY Eosinophils 0.2 0.0 - 0.5 05/04 /2016 [facility] HEMATOLOGY Segs 56.7 45.0 - 05/04 75.0 [facility] HEMATOLOGY Eosinophils 3.0 0.0 - 4.0 05/04 [facility] HEMATOLOGY Monocytes # 0.3 0.0 - 0.8 05/04 [facility] HEMATOLOGY Lymphocytes 2.1 1.0 - 5.5 05/04 /2016 [facility] ELECTROLYTE Sodium Lvl 140 135 - 145 / MH S /2015 [facility] ELECTROLYTE Chloride Lvl 105 95 - 109 04/17 MH S /2015 [facility] ELECTROLYTE Potassium 3.8 3.5 - 5.1 /24 MH S Lvl /2015 [facility] ELECTROLYTE BUN 11 7 - 22 04/17 MH S /2015 [facility] ELECTROLYTE Calcium Lvl 8.1 8.5 - 10.5 04/17 MH S /2015 [facility] ELECTROLYTE CO2 26 24 - 32 / MH S /2015 [facility] ELECTROLYTE Glucose Lvl 85 70 - 99 12/ MH S /2015 [facility] ELECTROLYTE Creatinine 0.64 0.50 - 12 MH S Lvl 1.40 [facility] ELECTROLYTE eGFR 119 / Result MH S Comment: [facility] eGFR is City calculated using the CKD-EPI formula. In most young, healthy individuals the eGFR will be >90 mL/min/1.73m2 . The eGFR declines with age. An eGFR of 60-89 may be normal in some populations, particularly the elderly, for whom the CKD-EPI formula has not been extensively validated. Use of the eGFR is not recommended in the following populations:< br/>
Naomy viduals with unstable creatinine concentration s, including patients and those with serious co-morbid conditions.<b r/>
Patie nts with extremes in muscle mass or diet.

The data above are obtained from the National Kidney Disease Education Program (NKDEP) which additionally recommends that when the eGFR is used in patients with extremes of body mass index for purposes of drug dosing, the eGFR should be multiplied by the estimated BMI. ELECTROLYTE AGAP 12.8 10.0 - 12/24 MH S 20.0 /2015 [facility] HEMATOLOGY Segs-Bands # 2.8 1.5 - 8.1 04/17 [facility] HEMATOLOGY Basophils 0.5 0.0 - 1.0 04/17 [facility] HEMATOLOGY Eosinophils 1.4 0.0 - 4.0 04/17 [facility] HEMATOLOGY Monocytes 6.5 2.0 - 12.0 04/17 [facility] HEMATOLOGY Lymphocytes 45.1 20.0 - 12 MH 40.0 /2015 [facility] HEMATOLOGY Segs 46.5 45.0 - 12 MH 75.0 /2016 [facility] HEMATOLOGY Monocytes # 0.4 0.0 - 0.8 12/24 MH /2015 [facility] HEMATOLOGY Eosinophils 0.1 0.0 - 0.5 12/24 MH # /2016 [facility] HEMATOLOGY Lymphocytes 2.7 1.0 - 5.5 12/24 MH # /2016 [facility] HEMATOLOGY INR 1.11 0.85 - 12 MH 1.17 /2015 [facility] HEMATOLOGY PT 14.5 12.0 - 12 MH 14.7 /2015 [facility] HEMATOLOGY PTT 31.8 22.9 - 12 MH 35.8 /2015 [facility] HEMATOLOGY MPV 7.9 7.4 - 10.4 12 MH /2015 [facility] Platelet 234 133 - 450 12/ MH /2015 [facility] HEMATOLOGY Hct 33.4 36.0 - 04/17 MH 48.0 /2015 [facility] HEMATOLOGY RBC 3.88 4.20 - 04/17 MH 5.40 /2015 [facility] HEMATOLOGY Hgb 11.1 12.0 - 04/17 MH 16.0 /2015 [facility] HEMATOLOGY RDW 13.5 11.5 - 04/17 MH 14.5 /2015 [facility] HEMATOLOGY MCHC 33.2 32.0 - 12 MH 36.0 /2015 [facility] HEMATOLOGY MCH 28.6 27.0 - 04/17 MH 31.0 /2015 [facility] HEMATOLOGY MCV 86.1 80.0 - 04/17 MH 98.0 /2015 [facility] HEMATOLOGY WBC 5.9 3.7 - 10.4 04/17 MH [facility] CHEM PANEL eGFR 123 04/16 Result Comment: [facility] eGFR is City calculated using the CKD-EPI formula. In most young, healthy individuals the eGFR will be >90 mL/min/1.73m2 . The eGFR declines with age. An eGFR of 60-89 may be normal in some populations, particularly the elderly, for whom the CKD-EPI formula has not been extensively validated. Use of the eGFR is not recommended in the following populations:< br/>
Naomy viduals with unstable creatinine concentration s, including patients and those with serious co-morbid conditions.<b r/>
Patie nts with extremes in muscle mass or diet.

The data above are obtained from the National Kidney Disease Education Program (NKDEP) which additionally recommends that when the eGFR is used in patients with extremes of body mass index for purposes of drug dosing, the eGFR should be multiplied by the estimated BMI. CHEM PANEL Creatinine 0.58 0.50 - 04/16 MH Lvl 1.40 /2015 [facility] CHEM PANEL CO2 24 24 - 32 04/16 [facility] CHEM PANEL Calcium Lvl 8.3 8.5 - 10.5 04/16 [facility] CHEM PANEL Potassium 4.3 3.5 - 5.1 04/16 MH Lvl /2015 [facility] CHEM PANEL Chloride Lvl 102 95 - 109 04/16 [facility] CHEM PANEL Sodium Lvl 138 135 - 145 04/16 [facility] CHEM PANEL BUN 5 7 - 22 04/16 [facility] CHEM PANEL Glucose Lvl 96 70 - 99 04/16 [facility] CHEM PANEL AGAP 16.3 10.0 - 04/16 MH 20.0 [facility] HEMATOLOGY Monocytes # 0.8 0.0 - 0.8 04/16 [facility] HEMATOLOGY Lymphocytes 1.4 1.0 - 5.5 04/16 MH # /2015 [facility] HEMATOLOGY Segs-Bands # 7.2 1.5 - 8.1 04/16 [facility] HEMATOLOGY Basophils 0.1 0.0 - 1.0 04/16 [facility] HEMATOLOGY Lymphocytes 15.2 20.0 - 04/16 MH 40.0 [facility] HEMATOLOGY Monocytes 8.0 2.0 - 12.0 04/16 [facility] HEMATOLOGY Segs 76.7 45.0 - 04/16 MH 75.0 /2015 [facility] HEMATOLOGY INR 1.13 0.85 - 04/16 MH 1.17 /2015 [facility] HEMATOLOGY PTT 30.3 22.9 - 04/16 MH 35.8 /2015 [facility] HEMATOLOGY PT 14.7 12.0 - 04/16 MH 14.7 [facility] HEMATOLOGY Platelet 274 133 - 450 04/16 [facility] HEMATOLOGY MPV 8.3 7.4 - 10.4 04/16 [facility] HEMATOLOGY RDW 13.2 11.5 - 04/16 MH 14.5 /2015 [facility] HEMATOLOGY MCV 84.3 80.0 - 04/16 MH 98.0 /2015 [facility] HEMATOLOGY MCHC 34.3 32.0 - 04/16 MH 36.0 /2015 [facility] HEMATOLOGY MCH 28.9 27.0 - 04/16 MH 31.0 /2015 [facility] HEMATOLOGY Hct 36.5 36.0 - 04/16 MH 48.0 /2015 [facility] HEMATOLOGY Hgb 12.5 12.0 - 04/16 MH 16.0 /2015 [facility] HEMATOLOGY RBC 4.34 4.20 - 04/16 MH 5.40 /2015 [facility] HEMATOLOGY WBC 9.4 3.7 - 10.4 12 MH /2015 [facility] BLOOD BANK Antibody Negative 04/08 RESULTS Scrn (04/08/16 1:16 PM) /2015 [facility] BLOOD BANK ABO/Rh O POS 04/08 RESULTS /2015 [facility] CHEM PANEL Vitamin D, 21 30 - 100 04/08 25-OH, Total /2015 [facility] CHEM PANEL A/G Ratio 1.0 0.7 - 1.6 04/08 [facility] CHEM PANEL Globulin 4.1 2.7 - 4.2 04/08 [facility] CHEM PANEL AGAP 15.8 10.0 - 04/08 MH 20.0 /2015 [facility] CHEM PANEL B/C Ratio 13 6 - 25 04/08 [facility] CHEM PANEL AST 19 0 - 37 04/08 [facility] CHEM PANEL Alk Phos 79 39 - 136 04/08 [facility] CHEM PANEL Total 8.0 6.4 - 8.4 04/08 /2015 [facility] CHEM PANEL Bili Total 0.6 0.2 - 1.3 04/08 [facility] CHEM PANEL Albumin Lvl 3.9 3.5 - 5.0 04/08 [facility] CHEM PANEL BUN 10 7 - 22 04/08 [facility] CHEM PANEL Potassium 3.8 3.5 - 5.1 04/08 Lvl /2015 [facility] CHEM PANEL Sodium Lvl 138 135 - 145 04/08 [facility] CHEM PANEL Calcium Lvl 9.3 8.5 - 10.5 04/08 [facility] CHEM PANEL CO2 25 24 - 32 04/08 [facility] CHEM PANEL Chloride Lvl 101 95 - 109 04/08 /2015 [facility] CHEM PANEL ALT 24 0 - 65 12 [facility] CHEM PANEL Glucose Lvl 112 70 - 99 12 [facility] CHEM PANEL Creatinine 0.75 0.50 - 12 MH Lvl 1.40 /2015 [facility] CHEM PANEL eGFR 107 12/ Result Comment: [facility] eGFR is City calculated using the CKD-EPI formula. In most young, healthy individuals the eGFR will be >90 mL/min/1.73m2 . The eGFR declines with age. An eGFR of 60-89 may be normal in some populations, particularly the elderly, for whom the CKD-EPI formula has not been extensively validated. Use of the eGFR is not recommended in the following populations:< br/>
Naomy viduals with unstable creatinine concentration s, including patients and those with serious co-morbid conditions.<b r/>
Patie nts with extremes in muscle mass or diet.

The data above are obtained from the National Kidney Disease Education Program (NKDEP) which additionally recommends that when the eGFR is used in patients with extremes of body mass index for purposes of drug dosing, the eGFR should be multiplied by the estimated BMI. HEMATOLOGY PT 13.5 12.0 - 04/08 MH 14.7 /2016 [facility] HEMATOLOGY PTT 28.6 22.9 - 12 MH 35.8 /2015 [facility] HEMATOLOGY INR 1.01 0.85 - 04/08 MH 1.17 /2015 [facility] HEMATOLOGY Segs 89.4 45.0 - 12 MH 75.0 /2016 [facility] HEMATOLOGY Lymphocytes 9.3 20.0 - 12/ MH 40.0 /2016 [facility] HEMATOLOGY Monocytes 1.0 2.0 - 12.0 04/08 MH [facility] HEMATOLOGY Lymphocytes 0.7 1.0 - 5.5 12/ MH # /2016 [facility] HEMATOLOGY Basophils 0.3 0.0 - 1.0 / MH [facility] HEMATOLOGY Segs-Bands # 6.7 1.5 - 8.1 04/08 MH [facility] HEMATOLOGY Monocytes # 0.1 0.0 - 0.8 / MH [facility] HEMATOLOGY Hgb 14.0 12.0 - 12/15 MH 16.0 /2016 [facility] HEMATOLOGY Hct 41.9 36.0 - 04/08 MH 48.0 /2015 [facility] HEMATOLOGY RBC 4.90 4.20 - 04/08 MH 5.40 /2015 [facility] HEMATOLOGY WBC 7.5 3.7 - 10.4 04/08 /2015 [facility] HEMATOLOGY MCV 85.4 80.0 - 04/08 MH 98.0 /2015 [facility] HEMATOLOGY RDW 13.0 11.5 - 04/08 MH 14.5 /2015 [facility] HEMATOLOGY MCHC 33.5 32.0 - 04/08 MH 36.0 /2015 [facility] HEMATOLOGY MCH 28.6 27.0 - 12 MH 31.0 /2015 [facility] HEMATOLOGY MPV 7.7 7.4 - 10.4 04/08 [facility] HEMATOLOGY Platelet 317 133 - 450 04/08 [facility] PARATHYROID PTH Intact 46.3 11.1 - 04/08 MH PROFILE 79.5 /2015 [facility] SPECIAL Hgb A1C 5.1 <=5.6 % 04/08 CHEMISTRY /2015 [facility] URINE AND Micro? Performed 04/08 STOOL *NA* /2015 [facility] (04/08/16 12:00 PM) [facility] URINE AND UA <=1.0 0.1 - 1.0 04/08 STOOL Urobilinogen mg/dL /2015 [facility] URINE AND UA Bacteria Occasional None Seen 04/08 STOOL /HPF /HPF /2015 [facility] URINE AND UA Mucus Few /LPF None Seen 04/08 STOOL /LPF /2015 [facility] URINE AND UA Bili Negative Negative 04/08 STOOL *NA* /2015 [facility] (04/08/16 12:00 PM) [facility] URINE AND UA Glucose Negative Negative 04/08 STOOL mg/dL mg/dL /2015 [facility] URINE AND UA Blood Small Negative 04/08 STOOL *ABN* /2015 [facility] (04/08/16 12:00 PM) [facility] URINE AND UA Nitrite Negative Negative 04/08 STOOL (04/08/16 12:00 PM) /2015 [facility] URINE AND UA Leuk Est Negative Negative 04/08 STOOL (04/08/16 12:00 PM) /2015 [facility] URINE AND UA Sq Epi Few /LPF Few /LPF 04/08 STOOL /2015 [facility] URINE AND UA RBC 1 0 - 2 04/08 STOOL /2015 [facility] URINE AND UA WBC 2 0 - 5 04/08 STOOL [facility] URINE AND UA pH 5.0 5.0 - 8.0 04/08 STOOL [facility] URINE AND UA Ketones 80 mg/dL Negative 04/08 STOOL mg/dL [facility] URINE AND UA Protein Negative Negative 04/08 STOOL mg/dL mg/dL [facility] URINE AND UA Color Yellow Yellow 04/08 STOOL *NA* /2015 [facility] (04/08/16 12:00 PM) [facility] URINE AND UA Turbidity Slight Clear 04/08 STOOL *ABN* /2015 [facility] (04/08/16 12:00 PM) 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 COMPARISON: Unavailable TECHNIQUE: Contiguous axial images of the brain are obtained from skull base to vertex without administration of intravenous contrast .Axial, sagittal, coronal images are interpreted. Dose: DLP 781 mGy-cm FINDINGS: There is no intrac ranial hemorrhage, space occupying mass or mass effect. The barragan-white distinction is maintained. The ventricles, sulci, and basal cisterns are normal. The orbits, mastoids, paranasal sinuses and skull base are within normal limits. Small right maxillary mucous retention cyst is noted. IMPRESSION: No abnormal intracranial findings id entified Chest 2 views DX EXAM: 04/08/2016 [facility] y 2 view(s) of the chest. CLINICAL HX: Coughing. . . COMPARISON: Chest x-ray: None. FINDINGS: Support apparatus: None. Cardiac silhouette: Unremarkable. Angeli: Unremarkable. Consolidation: Negative. Pleural effusion: Negative. Pneumothorax: Negative. Other: Negative. Bones: Unremarkable. Other: None. IMPRESSION: 1. No acute cardiopulmonary process. Consultation Notes No Data Provided for This Section Discharge Summaries No Data Provided for This Section History and Physicals No Data Provided for This Section Vital Signs Vital Sign Value Date Comments Source Systolic (mm Hg) 99 09/11/2017 [facility] Diastolic (mm Hg) 59 09/11/2017 [facility] Heart Rate 63 09/11/[address] [facility] Temperature Oral (F) 98.5 F 09/11/2017 [facility] [facility] Respitory Rate 18 09/11/2017 [facility] Temperature Oral (F) 98.2 F 09/11/2017 [facility] Systolic (mm Hg) 95 09/11/2017 [facility] Diastolic (mm Hg) 57 09/11/2017 [facility] Respitory Rate 18 09/11/2017 [facility] Heart Rate 55 09/11/2017 [facility] Systolic (mm Hg) 101 09/11/2017 [facility] [place] Diastolic (mm Hg) 65 09/11/2017 [facility] Heart Rate 56 09/11/2017 [facility] Respitory Rate 18 09/11/2017 [facility] Temperature Oral (F) 98.6 F 09/11/2017 [facility] Height 157.48 cm 09/10/2017 [facility] Weight 65.455 09/10/2017 [facility] BMI Calculated 26.39 09/10/2017 [facility] Heart Rate 56 05/04/2016 [facility] Systolic (mm Hg) 115 05/04/2016 [facility] [place] Diastolic (mm Hg) 61 05/04/2016 [facility] Respitory Rate 16 05/04/2016 [facility] Systolic (mm Hg) 127 05/04/2016 [facility] Diastolic (mm Hg) 76 05/04/2016 [facility] Heart Rate 66 05/04/2016 [facility] Respitory Rate 18 05/04/2016 [facility] BMI Calculated 44.35 05/04/2016 [facility] Weight 110 05/04/2016 [facility] Height 157.48 cm 05/04/2016 [facility] Respitory Rate 18 05/04/2016 [facility] Temperature Oral (F) 98.3 F 05/04/2016 [facility] Systolic (mm Hg) 150 05/04/2016 [facility] [place] Diastolic (mm Hg) 91 05/04/2016 [facility] Heart Rate 69 05/04/2016 [facility] Systolic (mm Hg) 120 04/17/2016 [facility] Diastolic (mm Hg) 81 04/17/2016 [facility] Temperature Oral (F) 98.4 F 04/17/2016 [facility] Heart Rate 62 04/17/2016 [facility] Respitory Rate 20 04/17/2016 [facility] Respitory Rate 18 04/17/2016 [facility] Perla itzayda Systolic (mm Hg) 103 04/17/2016 [facility] Yael Diastolic (mm Hg) 71 04/17/2016 Katerine Con[facility] Heart Rate 56 04/17/2016 [facility] Loco y Temperature Oral (F) 98.2 F 04/17/2016 [facility] Systolic (mm Hg) 115 04/17/2016 [facility] Yael Diastolic (mm Hg) 69 [facility] 60 04/17/2016 [facility] Temperature Oral (F) 98.4 F 04/17/2016 [facility] Respitory Rate 18 04/17/2016 Ismael Duncan itzayda Weight 119.091 04/08/2016 [facility] Loco [facility] BMI Calculated 46.51 04/08/2016 Ismael Duncan itzayda Height 160.02 cm 04/08/2016 [facility] Encounters Location Location Encounter Encounter Reason Attending ADM DC Stat us Source Details Type Number For Provider Date Date Visit [facility] [id number] [facility] 04/15 04/17 Caludio 0 Primomo /2015 [facility] Emergency [id number] Mendez Ali 05/04 05/04 Claudio [facility] Observation [id number] Ryan 09/10 09/12 Claudio 9 [facility] Outpatient [id number] 01/15 [facility] [id number] 03/19 [facility] [id number] 09/19 [facility] 2 Prim [facility] Out[facility] [id number] 09/19 [facility] 3 Prim Claudio Ambulatory [id number] 09/19 [facility] 2 Prim[facility] Ambulatory [id number] 09/19 [facility] Pre[facility] 3 [facility] Procedures Procedure Code Date Perfomer Comments Source Gastric bypass [id number] 04/15/2016 Medical Group,[facility] Bilateral tubal [id number] Medica l ligation Group,[facility] section [id number] Medic al Group,[facility] Tonsillectomy with [id number] Med ical adenoidectomy Group,[facility] Assessment and Plan Assessment and Plan Date Source Extracted from:Title: Clinical Document 09/12/2017 [facility] Author: Ryan Chan MD Date: 09/11/17 Progress Note - Daily [facility] Completed: Monday, SEPTEMBER 11, 2017, 10:08 by Ryan Chan MD RM: 523 - 00, [id number] ТАТЬЯНА STALLWORTH MA RTA 31y (: 1985) F Attending: Ryan Chan MD Service: Surgery Reason for Admission: ABDOMINAL PAIN Working DRG: Code status: None Specified=FULL CODE Current diet: Isolation: No Isolation/Standard Precautions Allergies: codeine SUBJECTIVE/ OBJECTIVE No events. Tolerating diet. Prior pain resolved. 24hr Labs 09/11 0946 WBC 10.1 RBC 3.91 L Hgb 12.3 Hct 35.5 L MCV 90.9 MCH 31.5 H MCHC 34.6 RDW 13.1 Platelet 236 MPV 8.0 09/10 1450 Glucose Lvl 86 BUN 11 Creatinine Lvl 0.68 Sodium Lvl 141 Potassium Lvl 4.6 Chloride Lvl 104 CO2 30 AGAP 11.6 Calcium Lvl 8.7 eGFR 116 Total Protein 6.1 L Albumin Lvl 3.2 L Bili Total 0.4 Bili Direct <0.1 Bili Indirect Unable to Calculate Alk Phos 62 AST 22 ALT 40 Globulin 2.9 A/G Ratio 1.1 WBC 6.3 RBC 3.99 L Hgb 12.3 Hct 36.2 MCV 90.8 MCH 30.9 MCHC 34.0 RDW 13.1 Platelet 253 MPV 7.5 Nielson still necessary (Yes/No): Line still neces tiff (Yes/No): Vitals Tmp(F) Pulse BP RR SpO2 FIO2 09/11 07:24 98.6 56 101/65 18 95 --- 09/11 05:15 99 55 113/60 18 97 --- 09/11 00:37 ---- 62 109/62 16 99 2.0L/m 09/11 00:10 ---- 63 110/62 16 --- --- 09/10 23:21 98.8 57 111/65 17 100 --- 24 Hr Tmax: 99F (37.22c) at 09/11 05:15 Vital Signs are the last 5 in the past 48 hours. Date Wt(kg) Wt(lb) Ht(cm) Ht(in) Method 09/10 (initial) 65.45 144.00 157.48 62.00 Estimated I&O Record In Out Bal 09/11 24hr Tot 550 0 550 09/10 24hr Tot 4137 2180 0367 Medications (21) Active Scheduled Meds: None Unscheduled Meds: None PRN Meds (8): 09/10/17 Sodium Chloride 0.9% IV 25 mL IV PRN 09/10/17 bisacodyl (Dulcolax Laxative) 10 mg PO Daily 09/10/17 hydromorphone (Dilaudid) 0.5 mg IVP Q3H 09/10/17 ondansetron (Zofran ODT) 4 mg PO Q6H 09/10/17 promethazine (Phenergan) 12.5 mg IVPB Q4H 300 ml/hr 09/10/17 promethazine (Phenergan) 12.5 mg IV Central Q4H 300 ml/hr 09/10/17 sodium chloride (BD Normal Saline Flush) 5 mL IV HI N 09/10/17 sodium chloride (BD Normal Saline Flush) 10 mL IV P RN One Time Meds (12): 09/10/17 (Discontinued) Lactated Ringer s Injection IV (Lactated Ringers (Bolus) IV) 1,000 mL IV ONCE 1,000 ml/hr 09/10/17 (Completed) Lactated Ringers I njection IV (Lactated Ringers (Bolus) IV) 2,000 mL IV ONCE 2,000 ml/hr (Completed) ceFAZolin (ceFAZolin (ANES)) IV ONCE 09/10/17 (Completed) ceFAZolin (Ancef) 2 gm IVPB ONCE (Completed) dexamethasone (dexamethasone (ANES)) I V ONCE (Completed) fentaNYL (fentaNYL (ANES)) IV ONCE (Completed) glycopyrrolate (glycopyrrolate (ANES)) IV ONCE 09/10/17 (Completed) hydromorphone (Dilaudid) 0.5 mg IVP ON CE (Completed) lidocaine (lidocaine (ANES)) IV ONCE (Completed) neostigmine (neostigmine (ANES)) IV ON CE (Completed) propofol (propofol (ANES)) IV ONCE (Completed) rocuronium (rocuronium (ANES)) IV ONCE Continuous Infusions (1): 09/10/17 Lactated Ringers Injection IV 1 ,000 mL (LR IV 1,000 mL) 1,000 mL 125 ml/hr ASSESSMENT and EXAM NAD RRR Soft, ND, appr TTP, wounds c/d/i PLAN and TREATMENT S/p dxn laparoscopy . Normal RYGB anatom y noted. Patient with severe constipation as likely cause of prior abdominal pain. Negative for marginal ulcer, internal hernia, evidence of gastrogastric fistula or cholecystitis. Patient reports prior pain resolved. Plan cont enemas and incresae PO. Ready for Discharge (Yes/No)? 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 Extracted from:Title: Clinical Document 04/17/2016 [facility] Author: Dominick Hendrickson (Fellow) Date: 04/17/16 Progress Note [facility] S: No c/o, no acute events, chris B-CLD, ambulating well, marisa n well-controlled O: Vitals Tmp(F) Pulse BP RR SpO2 FIO2 04/17 07:20 98.4 62 120/81 20 --- --- 04/17 04:00 98.2 56 103/71 18 --- --- 04/17 00:00 98.4 60 115/69 18 --- --- 04/16 20:00 98.6 56 109/75 18 --- --- 04/16 16:00 98.3 59 116/71 20 --- --- 24 Hr Tmax: 98.6F (37.00c) at 04/16 20:0 0 Vital Signs are the last 5 in the past 48 hours. I&O Record In Out Bal 04/16 24hr Tot 2694 1100 1594 04/15 24hr Tot 9424 9922 1247 Scheduled Meds (2): 04/16/16 acetaminophen 650 mg PO Q6H 04/15/16 enoxaparin 30 mg SUB-Q [id number] CO2: 26 mEq/L (04/17/16 06:04:51) Chloride Lvl: 105 mEq/L (04/17/16 06:04:51) Sodium Lvl: 140 mEq/L (04/17/16 06:04:51) Glucose Lvl: 85 mg/dL (04/17/16 06:10:56) Calcium Lvl: 8.1 mg/dL Low (04/17/16 06:04:51) Potassium Lvl: 3.8 mEq/L (04/17/16 06:04:51) BUN: 11 mg/dL (04/17/16 06:04:51) AGAP: 12.8 mEq/L (04/17/16 06:04:51) Creatinine Lvl: 0.64 mg/dL (04/17/16 06:10:56) Hct: 33.4 % Low (04/17/16 06:33:03) Hgb: 11.1 g/dL Low (04/17/16 06:33:03) MCH: 28.6 pg (04/17/16 06:33:03) MCHC: 33.2 g/dL (04/17/16 06:33:03) MCV: 86.1 fL (04/17/16 06:33:03) MPV: 7.9 fL (04/17/16 06:33:03) Platelet: 234 K/CMM (04/17/16 06:33:03) RBC: 3.88 M/CMM Low (04/17/16 06:33:03) RDW: 13.5 % (04/17/16 06:33:03) WBC: 5.9 K/CMM (04/17/16 06:33:03) NAD, AAOx3 CTA-B RRR ABD soft, appro TTP, +BS, incisions c/d/i A&P: 30 y/o F s/p Lap RYGB POD #2 - Cont FLD - Ambulate halls - IS and pulmonary toilet - Home today Addendum by Ryan Chan MD on 04/17/2016 09:30 No events. Tolerating diet. Pain control led. Ambulating well. Abd soft, ND, appr TTP, wound c/d/i. Cont protocol. Plan of Care No Data Provided for This Section Social History Social History Date Source Social History TypeResponse 09/10/2017 [facility] Substance Abuse Use: None. Alcohol Never, Previous treatment: None. Alcoho l use interferes with work or home: No. Drinks more than intended: No. Ready to change: No. Household alcohol concerns: No. Smoking Status Never smoker; Type: Cigarettes; Exposure to Tobacco Smoke None; Cigarette Smoking Last 365 Days No; Reg Smoking Cessation Counseling No; Stopped at age: 17; entered on: 09/10/17 Social History TypeResponse 09/10/2017 Nelia G roubetina Alcohol Never, Previous treatment: None. Alcoho l use interferes with work or home: No. Drinks more than intended: No. Ready to change: No. Household alcohol concerns: No. Substance Abuse Use: None. Smoking Status Never smoker; Type: Cigarettes; Exposure to Tobacco Smoke None; Cigarette Smoking Last 365 Days No; Reg Smoking Cessation Counseling No; Stopped at age: 17; entered on: 03/19/19 Family History No Data Provided for This Section Advance Directives No Data Provided for This Section Functional Status No Data Provided for This Section
--- OUTSIDE RECORDS SUMMARY | 2019-11-14 09:38 | XMS REPORT | Summary of Care ---
:1985 Author Organization [facility] Address [id number] [place] [phone] Encounter HQ Encntr_alias(FIN) [id number] Date(s): 09/20/19 - 09/20/19 [facility] [address] [place] [phone]- [phone] Attending Physician: Ryan Chan MD Vital Signs [...]
[2019-11-14 16:06] VITALS: O2SAT 100
[2019-11-14 16:54] VITALS: BP 103/56; TEMP 98
== END ==
LOC: DS 08:33
DX: D64.9 Anemia, unspecified (principal)
CPT/HCPCS: 36415; 82947; 83540; 96365; 96372; 96366; J3301; J1200; J2916; J7050; J7040; J2405

== ENCOUNTER 2019-12-05 08:06 | Day surgery (SDC) | payer BC ==
--- OUTSIDE RECORDS SUMMARY | 2019-12-05 08:15 | XMS REPORT | Clinical Summary ---
:1985 Author Organization [facility] Address [address] [place] [address] Care Team Providers Name Role Phone Ryan [...] Not on file Results Not on fileafter 12/04/2018 Insurance Payer Benefit Plan / Subscriber ID Type Phone Address Group [employer] OS xxxxxxxxxxxx PPO [phone] PO MARGARITA X 557631 SHIELD POS/PP[place] [address]
--- OUTSIDE RECORDS SUMMARY | 2019-12-05 08:17 | XMS REPORT | Continuity of Care Document ---
:1985 Author Organization [facility] Information [facility] Care Team Providers Name Role Phone Lucent Sky Unavailable Un available Problems Problem Status Onset Classification Date Comments Sourc e Date Reported ABDOMINAL PAIN Active Me morial 8 City Discharge 05/07/2016 Memori al Diagnosis: 7 [facility] Benign paroxysmal vertigo DIZZINESS Active Memoria l 7 [facility] [address], MORBID Active [facility] orial OBESITY 6 [facility] Morbid obesity Active Problem 09/22/2019 M edical (disorder) Group,[facility] ILLNESS, Active Memoria l UNSPECIFIED [facility] Medications Medication Details Route Status Patient Ordering Order Source Instructions Provider Date Tramadol Notes: Not to Inactive exceed 2017 [facility] 400mg/day. [facility] (Same As: Ultra) tramadol 50 mg = 1 tab, Active hydrochloride 50 PO, Q4H, PRN 2017 In morial MG Oral Tablet Pain, X 5 day, Ci ty # 30 tab, 0 Refill(s) Dulcolax Laxative Notes: (Same No Longer As: Dulcolax, Active 2017 [facility] Correctol) (Do City Not Crush) "Do Not Crush" neostigmine (ANES) Route: IV, Drug Inactive 08/24 0 form: INJ, 2017 [facility] , date: 09/10/17 19:27:00 CDT glycopyrrolate Route: IV, Drug Inactive (ANES) form: INJ, 2017 [facility] ONCE, date: 09/10/17 19:27:00 CDT rocuronium (ANES) Route: IV, Drug Inactive 09/10 form: INJ, 2017 [facility] ONCE, Stop date: 09/10/17 18:37:00 CDT dexamethasone Route: IV, Drug Inactive H (ANES) form: INJ, 2017 [facility] , date: 09/10/17 18:37:00 CDT fentaNYL (ANES) Route: IV, Drug Inactive form: INJ, 2017 [facility] ONCE, Stop City date: 09/10/17 18:37:00 CDT lidocaine (ANES) Route: IV, Drug Inactive form: INJ, 2017 [facility] ONCE, Stop City date: 09/10/17 18:37:00 CDT propofol (ANES) Route: IV, Drug Inactive form: INJ, 2017 [facility] , Stop City date: 09/10/17 18:37:00 CDT ceFAZolin (ANES) Route: IV, Drug Inactive form: INJ, 2017 [facility] , Stop City date: 09/10/17 18:32:00 CDT Ancef 2 gm, Route: Inactive IVPB, ONCE, 2017 [facility] Weight [facility] 65.455, kg, Start date: 09/10/17 17:54:00 CDT, Stop date: 09/10/17 17:54:00 CDT, MFTS Surgical Prophylaxis Only; For patients < 100 kg, ABX Indication: Surgical Prophylaxis Lactated Ringers Route: IV, Inactive Injection IV Total Volume: 2017 Memor ial (ANES) 1000 mL 1,000, Start City date: 09/10/17 17:42:00 CDT, Stop date: 09/10/17 18:42:00 CDT Flumazenil Notes: (Same Inactive as: Romazicon) [address] [place] [address] Naloxone Notes: Same as Inactive Narcan 2017 [facility] Hydromorphone Notes: Same as Inactive Dilaudid 2017 [facility] Ondansetron Notes: (Same Inactive as: Zofran) [address] [place] [address] MEDICATION City WASTE Product Size: 4 mg Product Wasted: ___ mg biotin 10,000 mcg, PO, Active Daily, 0 [facility] Protonix 40 mg, PO, BID, No Longer # 30 tab, 0 Active 2017 [facility] Refill(s) [facility] ferrous gluconate 240 mg = 1 tab, Active 240 mg oral tablet PO, Daily, 0 [facility] Vitamin C 500 mg 500 mg = 1 tab, Active oral tablet PO, TID, 0 2017 [facility] Refill(s) [facility] Vitamin D3 10,000 10,000 IntlUnit Active intl units oral = 1 cap, PO, 2018 Mem orial capsule Every Other City Day, 0 Refill(s) multivitamin 1 tab, PO, Active Daily, 0 2017 [facility] Refill(s) [facility] Sucralfate 100 1 gm = 10 ml, No Longer H MG/ML Oral PO, QID-Before Active 2017 Memori al Suspension Meals, # 400 City [Carafate] ml, 0 Refill(s) Phenergan 12.5 mg, 50 mL, No Longer Route: IV Active 2017 [facility] City form: SOLN, Q4H, Dosing Weight 65.455, kg, PRN Nausea & Vomiting, Start date: 09/10/17 14:25:00 CDT, Duration: 30 day, Stop date: 10/10/17 14:24:00 CDT Dilaudid Notes: Same as No Longer Dilaudid Active 2017 [facility] Lactated Ringers 1,000 mL, Rate: Inactive IV 1,000 mL 125 ml/hr, 2017 [facility] Infuse over: 8 City hr, Route: IV, Dosing Weight 65.455 kg, Total Volume: 1,000, Start date: 09/10/17 14:25:00 CDT, Duration: 30 day, Stop date: 10/10/17 14:24:00 CDT, 1.71, m2 Calcium Chloride 2,000 mL, 2,000 Inactive 0.0014 MEQ/ML / ml/hr, Infuse 2018 [facility] Potassium Chloride Over: 1 hr, C ity 0.004 MEQ/ML / Route: IV, Sodium Chloride 2,000, Drug 0.103 MEQ/ML / form: INJ, Sodium Lactate ONCE, Priority: 0.028 MEQ/ML STAT, Dosing Injectable Weight 65.455 Solution kg, Start date: 09/10/17 14:25:00 CDT, Stop date: 09/10/17 14:25:00 CDT Sodium Chloride 25 mL, Route: No Longer 0.9% IV IV, Start date: Active 2017 [facility] 09/10/17 [facility] 14:24:00 CDT, Duration: 30 day, Stop date: 10/10/17 14:23:00 CDT, PRN Line Flush BD Normal Saline Notes: (Same No Longer Flush as: BD Active 2017 [facility] Posiflush) [facility] IV 1,000 mL 1,000 mL, Rate: No Longer 125 ml/hr, Active 2017 [facility] Infuse over: 8 City hr, Route: IV, Dosing Weight 110 kg, Total Volume: 1,000, Start date: 09/10/17 14:08:00 CDT, Duration: 30 day, Stop date: 10/10/17 14:07:00 CDT, 2.24, m2 Zofran ODT Notes: (Same No Longer as: Zofran ODT) Active 2017 [facility] Dilaudid Notes: Same as Inactive Dilaudid 2017 [facility] Phenergan 12.5 mg, 50 mL, No Longer Route: IVPB, Active 2017 [facility] Drug form: City SOLN, Q4H, Dosing Weight 65.455, kg, PRN Nausea & Vomiting, Start date: 09/10/17 14:08:00 CDT, Duration: 30 day, Stop date: 10/10/17 14:07:00 CDT Calcium Chloride 1,000 mL, 1,000 Inactive 0.0014 MEQ/ML / ml/hr, Infuse 2017 [facility] Potassium Chloride Over: 1 hr, C [...] mg, Route: Inactive IVP, Drug form: 2016 [facility] INJ, ONCE, [facility] Dosing Weight 110, kg, Priority: STAT, Start date: 05/04/16 14:40:00 [employer]ELOPER, Stop date: 05/04/16 14:40:00 [employer] DEVELOPER Meclizine 25 mg, Route: Inactive PO, Drug form: 2016 [facility] TAB, ONCE, [facility] Dosing Weight 110, kg, Priority: STAT, Start date: 05/04/16 14:40:00 [employer]S DEVELOPER, Stop date: 05/04/16 14:40:00 [employer] DEVELOPER Acetaminophen Notes: Max No Longer acetaminophen = Active 2015 [facility] 4000mg/day (4 City gm/day). (Same as: Tylenol) Simethicone Notes: (Same No Longer as: Mylicon) Active 2015 [facility] tramadol 50 mg = 1 tab, Active hydrochloride 50 PO, Q4H, PRN 2015 Me morial MG Oral Tablet Pain Score 1-3, C ity X 7 day, # 42 tab, 0 Refill(s) tramadol Notes: Not to No Longer hydrochloride 50 exceed Active 2015 Memoria l MG Oral Tablet 400mg/day. City (Same As: Ultra) Enoxaparin Notes: (Same No Longer as: Lovenox) Active 2015 [facility] Notes: Infuse No Longer over 15 minutes Active 2015 [facility] Do not exceed [facility] 4gm/day of acetaminophen MEDICATION WASTE Product Size: 1000 mg Product Wasted: ___ mg Hydromorphone Notes: Same as Inactive Dilaudid 2015 [facility] Notes: Infuse Inactive over 15 minutes 2015 [facility] Do not exceed [facility] 4gm/day of acetaminophen MEDICATION WASTE Product Size: 1000 mg Product Wasted: ___ mg Ketorolac 4 days No Longer MEDICATION Active 2015 [facility] WASTE City Product Size: 30 mg Product Wasted: ___ mg Dilaudid Notes: Same as No Longer Dilaudid Active 2015 [facility] Lactated Ringers 1,000 mL, Rate: No Longer 04/15 1,000 mL 80 ml/hr, Active 2015 [facility] Infuse over: [facility] 12.5 hr, Route: IV, Dosing Weight 119.091 kg, Total Volume: 1,000, Priority: STAT, Start date: 04/15/16 10:11:00 [employer] DEVELOPER, Duration: 30 day, Stop date: 05/15/16 10:10:00 [employer] DEVELOPER Calcium Chloride 1,000 mL, Rate: No Longer 04/15 0.0014 MEQ/ML / 125 ml/hr, Active 2015 Memor ial Potassium Chloride Infuse over: [facility] 0.004 MEQ/ML / hr, Route: IV, Sodium Chloride Dosing Weight 0.103 MEQ/ML / 119.091 kg, Sodium Lactate Total Volume: 0.028 MEQ/ML 1,000, Start Injectable date: 04/15/16 Solution 10:11:00 [employer] DEVELOPER, Duration: 30 day, Stop date: 05/15/16 10:10:00 [employer] DEVELOPER Promethazine 12.5 mg, 50 mL, No Longer 04/15/ H Route: IVPB, Active 2015 [facility] Drug form: City SOLN, Q4H, Dosing Weight 119.091, kg, PRN Nausea & Vomiting, Start date: 04/15/16 10:11:00 [employer] DEVELOPER, Duration: 30 day, Stop date: 05/15/16 10:10:00 [employer] DEVELOPER Ondansetron Notes: (Same No Longer as: Zofran) Active 2015 [facility] MEDICATION City WASTE Product Size: 4 mg Product Wasted: ___ mg ondansetron (ANES) Route: IV, Drug Inactive 03/26 form: INJ, 2015 [facility], [facility] date: 04/15/16 9:40:00 [employer] DEVELOPER glycopyrrolate Route: IV, Drug Inactive (ANES) form: INJ, 2015 [facility] , Stop [facility] date: 04/15/16 9:40:00 SAP BODS DEVELOPER ketOROLAC (ANES) IV, ONCE Inactive 2015 [facility] neostigmine (ANES) Route: IV, Drug Inactive 03/26 form: INJ, 2015 [facility] , [facility] date: 04/15/16 9:40:00 SAP BODS DEVELOPER ceFAZolin (ANES) Route: IV, Drug Inactive form: INJ, 2015 date: 04/15/16 8:56:00 SAP [employer]ODS DEVELOPER acetaminophen Route: IV, Drug Inactive 04/15/ M H (ANES) form: INJ, 2015 date: 04/15/16 8:51:00 SAP BODS DEVELOPER dexamethasone Route: IV, Drug Inactive 04/15/ M H (ANES) form: INJ, 2015 date: 04/15/16 8:46:00 SAP BODS DEVELOPER succinylcholine Route: IV, Drug Inactive MH (ANES) form: INJ, 2015 date: 04/15/16 8:46:00 SAP BODS DEVELOPER fentaNYL (ANES) Route: IV, Drug Inactive form: INJ, 2015 [facility] date: 04/15/16 8:46:00 SAP BODS DEVELOPER midazolam (ANES) Route: IV, Drug Inactive form: SOLN, 2015 date: 04/15/16 8:46:00 SAP BODS DEVELOPER propofol (ANES) Route: IV, Drug Inactive form: INJ, 2015 [facility] date: 04/15/16 8:46:00 SAP BODS DEVELOPER lidocaine (ANES) Route: IV, Drug Inactive form: INJ, 2015 [facility] date: 04/15/16 8:46:00 SAP BODS DEVELOPER rocuronium (ANES) Route: IV, Drug Inactive 04/15 form: INJ, 2015 [facility] date: 04/15/16 8:36:00 SAP BODS DEVELOPER LR 1000 mL INJ Route: IV, Inactive (ANES) Total Volume: 2015 [facility] 1,000, date: 04/15/16 7:48:00 SAP BODS DEVELOPER, Stop date: 04/15/16 8:48:00 SAP BODS DEVELOPER Naloxone Notes: Same as No Longer Narcan Active 2015 [facility] Flumazenil Notes: (Same No Longer as: Romazicon) Active 2015 [facility] Ondansetron Notes: (Same No Longer as: Zofran) Active 2015 [facility] MEDICATION City WASTE Product Size: 4 mg Product Wasted: ___ mg Hydromorphone Notes: Same as Inactive Dilaudid 2015 [facility] ceFAZolin Notes: Same as: Inactive Ancef 2016 [facility] lisdexamfetamine 70 mg = 1 cap, [...] PANEL eGFR 100 09/11 Result Comment: The [facility] eGFR is City calculated using the CKD-EPI [...] 0.50 - 09/11 MH Lvl 1.40 /2017 [facility] CHEM PANEL Potassium 4.2 3.5 - 5.1 09/11 MH Lvl /2017 [facility] CHEM PANEL BUN 9 7 - 22 09/11 [facility] CHEM PANEL Sodium Lvl 136 135 - 145 09/11 [facility] CHEM PANEL Glucose Lvl 149 70 - 99 09/11 [facility] CHEM PANEL Chloride Lvl 98 95 - 109 09/11 [facility] CHEM PANEL CO2 28 24 - 32 09/11 [facility] CHEM PANEL Calcium Lvl 8.2 8.5 - 10.5 09/11 [facility] CHEM PANEL AGAP 14.2 10.0 - 09/11 MH 20.0 [facility] HEMATOLOGY RDW 13.1 11.5 - 09/11 MH 14.5 [facility] HEMATOLOGY MPV 8.0 7.4 - 10.4 09/11 [facility] HEMATOLOGY Platelet 236 133 - 450 09/11 [facility] HEMATOLOGY Hct 35.5 36.0 - 09/11 MH 48.0 /2017 [facility] HEMATOLOGY MCV 90.9 80.0 - 09/11 MH 98.0 /2017 [facility] HEMATOLOGY MCH 31.5 27.0 - 09/11 MH 31.0 [facility] HEMATOLOGY MCHC 34.6 32.0 - 09/11 MH 36.0 /2017 [facility] HEMATOLOGY WBC 10.1 3.7 - 10.4 09/11 [facility] HEMATOLOGY Hgb 12.3 12.0 - 09/11 MH 16.0 [facility] HEMATOLOGY RBC 3.91 4.20 - 09/11 MH 5.40 [facility] CHEM PANEL eGFR 116 09/10 Result Comment: The [facility] eGFR is City calculated using the CKD-EPI [...] AGAP 11.6 10.0 - 09/10 MH 20. [facility] CHEM PANEL BUN 11 7 - 22 09/10 [facility] CHEM PANEL Glucose Lvl 86 70 - 99 09/10 [facility] CHEM PANEL Creatinine 0.68 0.50 - 09/10 Lvl 1.40 /2017 [facility] CHEM PANEL CO2 30 24 - 32 09/10 [facility] CHEM PANEL Potassium 4.6 3.5 - 5.1 09/10 MH Lvl /2017 [facility] CHEM PANEL Chloride Lvl 104 95 - 109 09/10 [facility] CHEM PANEL Calcium Lvl 8.7 8.5 - 10.5 09/10 [facility] CHEM PANEL Sodium Lvl 141 135 - 145 09/10 [facility] CHEM PANEL AST 22 0 - 37 09/10 [facility] CHEM PANEL Bili Direct <0.1 0.0 - 0.3 09/10 [facility] CHEM PANEL ALT 40 0 - 65 09/10 [facility] CHEM PANEL Albumin Lvl 3.2 3.5 - 5.0 09/10 [facility] CHEM PANEL Bili Unable to 0.0 - 1.0 09/10 Indirect [facility] CHEM PANEL Bili Total 0.4 0.2 - 1.3 09/10 [facility] CHEM PANEL Alk Phos 62 39 - 136 09/10 [facility] CHEM PANEL A/G Ratio 1.1 0.7 - 1.6 09/10 [facility] CHEM PANEL Globulin 2.9 2.7 - 4.2 09/10 [facility] CHEM PANEL Total 6.1 6.4 - 8.4 09/10 [facility] HEMATOLOGY MPV 7.5 7.4 - 10.4 09/10 [facility] HEMATOLOGY Platelet 253 133 - 450 09/10 [facility] HEMATOLOGY RDW 13.1 11.5 - 09/10 MH 14.5 [facility] HEMATOLOGY Hgb 12.3 12.0 - 09/10 MH 16.0 [facility] HEMATOLOGY WBC 6.3 3.7 - 10.4 09/10 [facility] HEMATOLOGY RBC 3.99 4.20 - 09/10 MH 5.40 /2017 [facility] HEMATOLOGY MCHC 34.0 32.0 - 09/10 MH 36.0 [facility] HEMATOLOGY MCV 90.8 80.0 - 09/10 MH 98.0 [facility] HEMATOLOGY MCH 30.9 27.0 - 09/10 MH 31.0 [facility] HEMATOLOGY Hct 36.2 36.0 - 09/10 MH 48.0 [facility] URINE AND UA <=1.0 0.1 - 1.0 05/04 STOOL Urobilinogen mg/dL /2016 [facility] URINE AND UA Protein Negative Negative 05/04 STOOL mg/dL mg/dL [facility] URINE AND UA pH 7.0 5.0 - 8.0 05/04 STOOL [facility] URINE AND UA Spec Grav 1.020 <=1.030 05/04 STOOL [facility] URINE AND UA Color Yellow Yellow 05/04 STOOL *NA* /2016 [facility] (05/04/16 2:38 PM) [facility] URINE AND UA Turbidity Slight Clear 05/04 STOOL *ABN* /2016 [facility] (05/04/16 2:38 PM) [facility] URINE AND UA Mucus Few /LPF None Seen 05/04 STOOL /LPF /2016 [facility] URINE AND UA RBC 18 0 - 2 05/04 STOOL [facility] URINE AND UA Bacteria Occasional None Seen 05/04 STOOL /HPF /HPF /2016 [facility] URINE AND UA Leuk Est Negative Negative 05/04 STOOL (05/04/16 2:38 PM) /2016 [facility] URINE AND UA Sq Epi Few /LPF Few /LPF 05/04 STOOL /2016 [facility] URINE AND UA Nitrite Negative Negative 05/04 STOOL (05/04/16 2:38 PM) /2016 [facility] URINE AND UA Bili Negative Negative 05/04 STOOL *NA* /2016 [facility] (05/04/16 2:38 PM) [facility] URINE AND UA Blood Negative Negative 05/04 STOOL (05/04/16 2:38 PM) /2016 [facility] URINE AND UA Ketones 20 mg/dL Negative 05/04 STOOL mg/dL /2016 [facility] URINE AND UA Glucose Negative Negative 05/04 STOOL mg/dL mg/dL /2016 [facility] URINE CHEM U Preg Negative Negative 05/04 (05/04/16 2:38 PM) /2016 [facility] ANEMIA Vitamin B12 937 254 - 1320 05/04 STUDY Lvl /2016 [facility] CHEM PANEL Lipase Lvl 129 73 - 393 05/04 [facility] CHEM PANEL Magnesium 1.7 1.8 - 2.4 05/04 Lvl /2016 [facility] CHEM PANEL Phosphorus 3.9 2.5 - 4.5 05/04 [facility] CHEM PANEL Bili 0.3 0.0 - 1.0 05/04 [facility] CHEM PANEL A/G Ratio 1.0 0.7 - 1.6 05/04 [facility] CHEM PANEL Globulin 3.4 2.7 - 4.2 05/04 [facility] CHEM PANEL AST 17 0 - 37 05/04 [facility] CHEM PANEL Total 6.8 6.4 - 8.4 05/04 [facility] CHEM PANEL Bili Total 0.4 0.2 - 1.3 05/04 [facility] CHEM PANEL Alk Phos 56 39 - 136 05/04 [facility] CHEM PANEL Bili Direct 0.1 0.0 - 0.3 05/04 [facility] CHEM PANEL ALT 27 0 - 65 05/04 [facility] CHEM PANEL Albumin Lvl 3.4 3.5 - 5.0 05/04 [facility] CHEM PANEL VITAMIN B1 136.8 66.5 - 01 Result MH (THIAMINE) 200.0 /2016 Comment: [facility] WHOLE BLOOD Performed At: [facility]
[address] [place], [place] [id number]<br/ >Emily Cordero MD Ph:[phone] ELECTROLYTE AGAP 13.3 10.0 - 05/04 MH S 20.0 [facility] ELECTROLYTE eGFR 126 05/04 Result Comment: The [facility] eGFR is City calculated using the CKD-EPI [...] CO2 25 24 - 32 05/04 MH [facility] ELECTROLYTE Creatinine 0.54 0.50 - 05/04 S Lvl 1.40 /2016 [facility] ELECTROLYTE BUN 8 7 - 22 05/04 S [facility] ELECTROLYTE Glucose Lvl 99 70 - 99 05/04 [facility] ELECTROLYTE Calcium Lvl 8.9 8.5 - 10.5 05/04 [facility] ELECTROLYTE Potassium 4.3 3.5 - 5.1 05/04 S Lvl /2016 [facility] ELECTROLYTE Chloride Lvl 108 95 - 109 05/04 S [facility] ELECTROLYTE Sodium Lvl 142 135 - 145 05/04 S [facility] HEMATOLOGY Platelet 287 133 - 450 05/04 [facility] HEMATOLOGY MCV 83.4 80.0 - 05/04 98.0 /2016 [facility] HEMATOLOGY MCH 28.6 27.0 - 05/04 31.0 [facility] HEMATOLOGY MCHC 34.4 32.0 - 05/04 36.0 /2016 [facility] HEMATOLOGY RDW 13.4 11.5 - 05/04 14.5 [facility] HEMATOLOGY WBC 6.2 3.7 - 10.4 05/04 [facility] HEMATOLOGY Hct 38.5 36.0 - 05/04 48.0 /2016 [facility] HEMATOLOGY RBC 4.62 4.20 - 05/04 5.40 [facility] HEMATOLOGY Hgb 13.2 12.0 - 05/04 16.0 [facility] HEMATOLOGY MPV 8.2 7.4 - 10.4 05/04 [facility] HEMATOLOGY Lymphocytes 33.9 20.0 - 05/04 40.0 [facility] HEMATOLOGY Monocytes 5.5 2.0 - 12.0 05/04 [facility] HEMATOLOGY Segs-Bands # 3.5 1.5 - 8.1 05/04 [facility] HEMATOLOGY Basophils 0.9 0.0 - 1.0 05/04 [facility] HEMATOLOGY Basophils # 0.1 0.0 - 0.2 05/04 [facility] HEMATOLOGY Eosinophils 0.2 0.0 - 0.5 05/04 /2016 [facility] HEMATOLOGY Segs 56.7 45.0 - 05/04 75.0 [facility] HEMATOLOGY Eosinophils 3.0 0.0 - 4.0 05/04 [facility] HEMATOLOGY Monocytes # 0.3 0.0 - 0.8 05/04 [facility] HEMATOLOGY Lymphocytes 2.1 1.0 - 5.5 05/04 /2016 [facility] ELECTROLYTE Sodium Lvl 140 135 - 145 / MH S /2015 [facility] ELECTROLYTE Chloride Lvl 105 95 - 109 04/17 MH S /2015 [facility] ELECTROLYTE Potassium 3.8 3.5 - 5.1 /24 MH S Lvl /2015 [facility] ELECTROLYTE BUN 11 7 - 22 04/17 MH S /2015 [facility] ELECTROLYTE Calcium Lvl 8.1 8.5 - 10.5 04/17 MH S /2015 [facility] ELECTROLYTE CO2 26 24 - 32 / MH S /2015 [facility] ELECTROLYTE Glucose Lvl 85 70 - 99 12/ MH S /2015 [facility] ELECTROLYTE Creatinine 0.64 0.50 - 12 MH S Lvl 1.40 [facility] ELECTROLYTE eGFR 119 / Result MH S Comment: The [facility] eGFR is City calculated using the CKD-EPI [...] 10.0 - 12/24 MH S 20.0 /2015 [facility] HEMATOLOGY Segs-Bands # 2.8 1.5 - 8.1 04/17 [facility] HEMATOLOGY Basophils 0.5 0.0 - 1.0 04/17 [facility] HEMATOLOGY Eosinophils 1.4 0.0 - 4.0 04/17 [facility] HEMATOLOGY Monocytes 6.5 2.0 - 12.0 04/17 [facility] HEMATOLOGY Lymphocytes 45.1 20.0 - 12 MH 40.0 /2015 [facility] HEMATOLOGY Segs 46.5 45.0 - 12 MH 75.0 /2016 [facility] HEMATOLOGY Monocytes # 0.4 0.0 - 0.8 12/24 MH /2015 [facility] HEMATOLOGY Eosinophils 0.1 0.0 - 0.5 12/24 MH # /2016 [facility] HEMATOLOGY Lymphocytes 2.7 1.0 - 5.5 12/24 MH # /2016 [facility] HEMATOLOGY INR 1.11 0.85 - 12 MH 1.17 /2015 [facility] HEMATOLOGY PT 14.5 12.0 - 12 MH 14.7 /2015 [facility] HEMATOLOGY PTT 31.8 22.9 - 12 MH 35.8 /2015 [facility] HEMATOLOGY MPV 7.9 7.4 - 10.4 12 MH /2015 [facility] Platelet 234 133 - 450 12/ MH /2015 [facility] HEMATOLOGY Hct 33.4 36.0 - 04/17 MH 48.0 /2015 [facility] HEMATOLOGY RBC 3.88 4.20 - 04/17 MH 5.40 /2015 [facility] HEMATOLOGY Hgb 11.1 12.0 - 04/17 MH 16.0 /2015 [facility] HEMATOLOGY RDW 13.5 11.5 - 04/17 MH 14.5 /2015 [facility] HEMATOLOGY MCHC 33.2 32.0 - 12 MH 36.0 /2015 [facility] HEMATOLOGY MCH 28.6 27.0 - 04/17 MH 31.0 /2015 [facility] HEMATOLOGY MCV 86.1 80.0 - 04/17 MH 98.0 /2015 [facility] HEMATOLOGY WBC 5.9 3.7 - 10.4 04/17 MH [facility] CHEM PANEL eGFR 123 04/16 Result Comment: [facility] [facility] eGFR is City calculated using the CKD-EPI [...] 0.50 - 04/16 MH Lvl 1.40 /2015 [facility] CHEM PANEL CO2 24 24 - 32 04/16 [facility] CHEM PANEL Calcium Lvl 8.3 8.5 - 10.5 04/16 [facility] CHEM PANEL Potassium 4.3 3.5 - 5.1 04/16 MH Lvl /2015 [facility] CHEM PANEL Chloride Lvl 102 95 - 109 04/16 [facility] CHEM PANEL Sodium Lvl 138 135 - 145 04/16 [facility] CHEM PANEL BUN 5 7 - 22 04/16 [facility] CHEM PANEL Glucose Lvl 96 70 - 99 04/16 [facility] CHEM PANEL AGAP 16.3 10.0 - 04/16 MH 20.0 [facility] HEMATOLOGY Monocytes # 0.8 0.0 - 0.8 04/16 [facility] HEMATOLOGY Lymphocytes 1.4 1.0 - 5.5 04/16 MH # /2015 [facility] HEMATOLOGY Segs-Bands # 7.2 1.5 - 8.1 04/16 [facility] HEMATOLOGY Basophils 0.1 0.0 - 1.0 04/16 [facility] HEMATOLOGY Lymphocytes 15.2 20.0 - 04/16 MH 40.0 [facility] HEMATOLOGY Monocytes 8.0 2.0 - 12.0 04/16 [facility] HEMATOLOGY Segs 76.7 45.0 - 04/16 MH 75.0 /2015 [facility] HEMATOLOGY INR 1.13 0.85 - 04/16 MH 1.17 /2015 [facility] HEMATOLOGY PTT 30.3 22.9 - 04/16 MH 35.8 /2015 [facility] HEMATOLOGY PT 14.7 12.0 - 04/16 MH 14.7 [facility] HEMATOLOGY Platelet 274 133 - 450 04/16 [facility] HEMATOLOGY MPV 8.3 7.4 - 10.4 04/16 [facility] HEMATOLOGY RDW 13.2 11.5 - 04/16 MH 14.5 /2015 [facility] HEMATOLOGY MCV 84.3 80.0 - 04/16 MH 98.0 /2015 [facility] HEMATOLOGY MCHC 34.3 32.0 - 04/16 MH 36.0 /2015 [facility] HEMATOLOGY MCH 28.9 27.0 - 04/16 MH 31.0 /2015 [facility] HEMATOLOGY Hct 36.5 36.0 - 04/16 MH 48.0 /2015 [facility] HEMATOLOGY Hgb 12.5 12.0 - 04/16 MH 16.0 /2015 [facility] HEMATOLOGY RBC 4.34 4.20 - 04/16 MH 5.40 /2015 [facility] HEMATOLOGY WBC 9.4 3.7 - 10.4 12 MH /2015 [facility] BLOOD BANK Antibody Negative 04/08 RESULTS Scrn (04/08/16 1:16 PM) /2015 [facility] BLOOD BANK ABO/Rh O POS 04/08 RESULTS /2015 [facility] CHEM PANEL Vitamin D, 21 30 - 100 04/08 25-OH, Total /2015 [facility] CHEM PANEL A/G Ratio 1.0 0.7 - 1.6 04/08 [facility] CHEM PANEL Globulin 4.1 2.7 - 4.2 04/08 [facility] CHEM PANEL AGAP 15.8 10.0 - 04/08 MH 20.0 /2015 [facility] CHEM PANEL B/C Ratio 13 6 - 25 04/08 [facility] CHEM PANEL AST 19 0 - 37 04/08 [facility] CHEM PANEL Alk Phos 79 39 - 136 04/08 [facility] CHEM PANEL Total 8.0 6.4 - 8.4 04/08 /2015 [facility] CHEM PANEL Bili Total 0.6 0.2 - 1.3 04/08 [facility] CHEM PANEL Albumin Lvl 3.9 3.5 - 5.0 04/08 [facility] CHEM PANEL BUN 10 7 - 22 04/08 [facility] CHEM PANEL Potassium 3.8 3.5 - 5.1 04/08 Lvl /2015 [facility] CHEM PANEL Sodium Lvl 138 135 - 145 04/08 [facility] CHEM PANEL Calcium Lvl 9.3 8.5 - 10.5 04/08 [facility] CHEM PANEL CO2 25 24 - 32 04/08 [facility] CHEM PANEL Chloride Lvl 101 95 - 109 04/08 /2015 [facility] CHEM PANEL ALT 24 0 - 65 12 [facility] CHEM PANEL Glucose Lvl 112 70 - 99 12 [facility] CHEM PANEL Creatinine 0.75 0.50 - 12 MH Lvl 1.40 /2015 [facility] CHEM PANEL eGFR 107 12/ Result Comment: [facility] [place] eGFR is City calculated using the CKD-EPI [...] 13.5 12.0 - 04/08 MH 14.7 /2016 [facility] HEMATOLOGY PTT 28.6 22.9 - 12 MH 35.8 /2015 [facility] HEMATOLOGY INR 1.01 0.85 - 04/08 MH 1.17 /2015 [facility] HEMATOLOGY Segs 89.4 45.0 - 12 MH 75.0 /2016 [facility] HEMATOLOGY Lymphocytes 9.3 20.0 - 12/ MH 40.0 /2016 [facility] HEMATOLOGY Monocytes 1.0 2.0 - 12.0 04/08 MH [facility] HEMATOLOGY Lymphocytes 0.7 1.0 - 5.5 12/ MH # /2016 [facility] HEMATOLOGY Basophils 0.3 0.0 - 1.0 / MH [facility] HEMATOLOGY Segs-Bands # 6.7 1.5 - 8.1 04/08 MH [facility] HEMATOLOGY Monocytes # 0.1 0.0 - 0.8 / MH [facility] HEMATOLOGY Hgb 14.0 12.0 - 12/15 MH 16.0 /2016 [facility] HEMATOLOGY Hct 41.9 36.0 - 04/08 MH 48.0 /2015 [facility] HEMATOLOGY RBC 4.90 4.20 - 04/08 MH 5.40 /2015 [facility] HEMATOLOGY WBC 7.5 3.7 - 10.4 04/08 /2015 [facility] HEMATOLOGY MCV 85.4 80.0 - 04/08 MH 98.0 /2015 [facility] HEMATOLOGY RDW 13.0 11.5 - 04/08 MH 14.5 /2015 [facility] HEMATOLOGY MCHC 33.5 32.0 - 04/08 MH 36.0 /2015 [facility] HEMATOLOGY MCH 28.6 27.0 - 12 MH 31.0 /2015 [facility] HEMATOLOGY MPV 7.7 7.4 - 10.4 04/08 [facility] HEMATOLOGY Platelet 317 133 - 450 04/08 [facility] PARATHYROID PTH Intact 46.3 11.1 - 04/08 MH PROFILE 79.5 /2015 [facility] SPECIAL Hgb A1C 5.1 <=5.6 % 04/08 CHEMISTRY /2015 [facility] URINE AND Micro? Performed 04/08 STOOL *NA* /2015 [facility] (04/08/16 12:00 PM) [facility] URINE AND UA <=1.0 0.1 - 1.0 04/08 STOOL Urobilinogen mg/dL /2015 [facility] URINE AND UA Bacteria Occasional None Seen 04/08 STOOL /HPF /HPF /2015 [facility] URINE AND UA Mucus Few /LPF None Seen 04/08 STOOL /LPF /2015 [facility] URINE AND UA Bili Negative Negative 04/08 STOOL *NA* /2015 [facility] (04/08/16 12:00 PM) [facility] URINE AND UA Glucose Negative Negative 04/08 STOOL mg/dL mg/dL /2015 [facility] URINE AND UA Blood Small Negative 04/08 STOOL *ABN* /2015 [facility] (04/08/16 12:00 PM) [facility] URINE AND UA Nitrite Negative Negative 04/08 STOOL (04/08/16 12:00 PM) /2015 [facility] URINE AND UA Leuk Est Negative Negative 04/08 STOOL (04/08/16 12:00 PM) /2015 [facility] URINE AND UA Sq Epi Few /LPF Few /LPF 04/08 STOOL /2015 [facility] URINE AND UA RBC 1 0 - 2 04/08 STOOL /2015 [facility] URINE AND UA WBC 2 0 - 5 04/08 STOOL [facility] URINE AND UA pH 5.0 5.0 - 8.0 04/08 STOOL [facility] URINE AND UA Ketones 80 mg/dL Negative 04/08 STOOL mg/dL [facility] URINE AND UA Protein Negative Negative 04/08 STOOL mg/dL mg/dL [facility] URINE AND UA Color Yellow Yellow 04/08 STOOL *NA* /2015 [facility] (04/08/16 12:00 PM) [facility] URINE AND UA Turbidity Slight Clear 04/08 STOOL *ABN* /2015 [facility] (04/08/16 12:00 PM) [facility] URINE AND UA Spec Grav 1.014 <=1.030 04/08 STOOL [facility] Pathology Reports No Data Provided for This Section Diagnostic Reports Report Value Date Source Brain wo contrast CT EXAM: CT HEAD WITHOUT CONTRAST 05/04/2016 [facility] DATE: 05/04/2016 12:01 PM [employer]EL[employer] CLINICAL INDICATION: . COMPARISON: Unavailable TECHNIQUE: Contiguous [...] entified Chest 2 views DX EXAM: 04/08/2016 [facility] y 2 view(s) of the chest. [...] Comments Source Systolic (mm Hg) 99 09/11/2017 [facility] Diastolic (mm Hg) 59 09/11/2017 [facility] Heart Rate 63 09/11/2017 [facility] Temperature Oral (F) 98.5 F 09/11/2017 [facility] Respitory Rate 18 09/11/[address] [facility] Temperature Oral (F) 98.2 F 09/11/2017 [facility] Systolic (mm Hg) 95 09/11/2017 [facility] Diastolic (mm Hg) 57 09/11/2017 [facility] Respitory Rate 18 09/11/2017 [facility] Heart Rate 55 09/11/2017 [facility] Systolic (mm Hg) 101 09/11/[address] [facility] [place] Diastolic (mm Hg) 65 09/11/2017 [facility] Heart Rate 56 09/11/2017 [facility] Respitory Rate 18 09/11/2017 [facility] Temperature Oral (F) 98.6 F 09/11/2017 [facility] Height 157.48 cm 09/10/2017 [facility] Weight 65.455 09/10/2017 [facility] BMI Calculated 26.39 09/10/2017 [facility] Heart Rate 56 05/04/2016 [facility] Systolic (mm Hg) 115 05/04/2016 [facility] [place] Diastolic (mm Hg) 61 05/04/2016 [facility] Respitory Rate 16 05/04/[address] [facility] Systolic (mm Hg) 127 05/04/2016 [facility] Diastolic (mm Hg) 76 05/04/2016 [facility] Heart Rate 66 05/04/2016 [facility] Respitory Rate 18 05/04/[address] [facility] BMI Calculated 44.35 05/04/[address] [facility] Weight 110 05/04/2016 [facility] Height 157.48 cm 05/04/2016 [facility] Respitory Rate 18 05/04/[address] [facility] Temperature Oral (F) 98.3 F 05/04/2016 [facility] Systolic (mm Hg) 150 05/04/[address] [facility] [place] Diastolic (mm Hg) 91 05/04/2016 [facility] Heart Rate 69 05/04/2016 [facility] Systolic (mm Hg) 120 04/17/2016 [facility] Diastolic (mm Hg) 81 04/17/2016 [facility] Temperature Oral (F) 98.4 F 04/17/2016 [facility] Heart Rate 62 04/17/2016 [facility] Respitory Rate 20 04/17/2016 [facility] Respitory Rate 18 04/17/[address] [facility] Perla itzayda Systolic (mm Hg) 103 04/17/[address] [facility] Yael Diastolic (mm Hg) 71 04/17/2016 Katerine Conley Heart Rate 56 04/17/2016 [facility] Temperature Oral (F) 98.2 F 04/17/2016 [facility] Systolic (mm Hg) 115 04/17/[address] [facility] Yael Diastolic (mm Hg) 69 [facility]17[facility] Rate 60 04/17/2016 [facility] Temperature Oral (F) 98.4 F 04/17/2016 [facility] Respitory Rate 18 04/17/2016 Ismael Duncan itzayda Weight 119.091 04/08/2016 [facility] Loco [facility] BMI Calculated 46.51 04/08/2016 Ismael Duncan itzayda Height 160.02 cm 04/08/2016 [facility] Encounters Location Location Encounter Encounter Reason Attending ADM DC Stat us Source Details Type Number For Provider Date Date [id number] 04/15 04/17 Claudio 0 Primomo /2015 [facility] Emergency [id number] Mendez Ali 05/04 05/[address] [facility] Observation [id number] Ryan 09/10 09/12 Claudio [facility] [id number] 01/15 [facility] [place] [facility] [id number] 03/19 [facility] [place] [facility] [id number] 09/19 [facility] [place] [facility] [id number] 09/19 [facility] Ambulatory [id number] 09/19 [facility] 2 [facility] Ambulatory [id number] 09/19 [facility] Pre[facility]Reg 3 [facility] Surgery Procedures Procedure Code Date Perfomer Comments Source Gastric bypass [id number] 04/15/2016 [facility] Bilateral tubal [id number] Medica l ligation Group,[facility] section [id number] Medic al Group,[facility] Tonsillectomy with [id number] Med ical adenoidectomy Group,[facility] Assessment and Plan Assessment and Plan Date Source Extracted from:Title: Clinical Document 09/12/2017 [facility] Author: Ryan Chan MD Date: 09/11/17 Progress Note - Daily [facility] Completed: Monday, SEPTEMBER 11, 2017, 10:08 by [...] 550 0 550 09/10 24hr Tot [id number] Medications (21) Active Scheduled Meds: None Unscheduled [...] (BD Normal Saline Flush) 5 mL IV MD N 09/10/17 sodium chloride (BD Normal Saline [...] 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 Tolerating diet. Pain control led. Ambulating well. Abd soft, ND, appr TTP, wound c/d/i. Cont protocol. Plan of Care No Data Provided for This Section Social History Social History Date Source Social History TypeResponse 09/10/2017 [facility] Substance Abuse Use: None. Alcohol Never, Previous [...]
[2019-12-05] MEDS ORDERED: SOD FERRIC GLUC COMPLX/SUCROSE 250 MG in NA CHLORIDE 0.9% 250 ML IV ONE (08:30)
[2019-12-05] MEDS ORDERED: DIPHENHYDRAMINE 50 MG/ML VIAL ONE ×2 (08:43→12:26)
[2019-12-05 09:21] VITALS: BMI 27.4
[2019-12-05] MEDS ORDERED: METHYLPREDNISOLONE 125 MG INJ ONE (11:55)
[2019-12-05] MEDS ORDERED: FAMOTIDINE 20 MG/2 ML VIAL IV ONE (12:00)
[2019-12-05] MEDS ORDERED: ONDANSETRON 4 MG/2 ML VIAL ONE (12:10)
[2019-12-05] MEDS ORDERED: NA CHLORIDE 0.9% 1,000 ML ONE (12:14)
[2019-12-05 14:18] VITALS: TEMP 98.3
[2019-12-05 14:35] VITALS: BP 106/66; O2SAT 99
== END 2019-12-05 14:30 | disposition home or self-care (01) ==
LOC: DS 08:06
DX: D64.9 Anemia, unspecified (principal)
CPT/HCPCS: 96365; 96366; J1200 ×2; J2916; J7050; J7030; J2930; J2405